=== PATIENT | male | born 1955 | race Caucasian/White ===

== ENCOUNTER 2016-11-30 23:46 | Inpatient (IN) | payer MEDICAID ==
[~2016-11-30] VITALS: Ht 177.8 cm; Wt 69.7 kg
[~2016-11-30 23:46] MED LIST: AMLO5TAB4 PO; FOLI-17 PO; LORA-446 PO; MULT-750 PO; OMEP-110 PO; OXYC5TAB3 PO; SENN1TAB7 PO; THIA100T6 PO
[2016-12-01] MEDS ORDERED: CLINDAMYCIN 150 MG/ML, 6ML IM ONE (02:00)
[2016-12-01] MEDS ORDERED: HYDROcodone/APAP 5/325 TABLET PO ONE (02:30)
[2016-12-01] MEDS ORDERED: SODIUM CHLORIDE 0.9% 1,000ML IVBOLUS ONE (03:00)
[2016-12-01] MEDS ORDERED: VANCOMYCIN PER PHARMACY IV ONE (03:00)
[2016-12-01] MEDS ORDERED: PIPERACILLIN/TAZO/PMX 3.375GM 50 ML IVPB ONE (03:00)
[2016-12-01] MEDS ORDERED: CLINDAMYCIN PMX 600MG/50ML 50 ML IV ONE (03:00)
[2016-12-01] MEDS ORDERED: VANCOMYCIN 1,500 MG in SODIUM CHLORIDE 0.9% 250 ML IV ONE (03:00)
[2016-12-01 03:19] LABS: BLOOD UREA NITROGEN 15 mg/dL (7-18)
[2016-12-01 03:22] LABS: ASPARTATE AMINO TRANSFERASE 41 U/L (15-37)
[2016-12-01] MEDS ORDERED: ONDANSETRON 2MG/ML, 2ML IVP PRN (04:00)
[2016-12-01] MEDS ORDERED: VANCOMYCIN PER PHARMACY MC PRN (04:00)
[2016-12-01] MEDS ORDERED: HYDROmorphone 2 MG/ML, 1ML IV PRN (04:00)
[2016-12-01] MEDS ORDERED: PROMETHAZINE 25 MG/ML, 1ML IM PRN (04:00)
[2016-12-01 04:59] VITALS: BP 144/85
[2016-12-01] MEDS ORDERED: PHARMACOKINETIC MONITORING MC PRN (06:00)
[2016-12-01] MEDS ORDERED: PHARMACOKINETIC CONSULTATION MC ONE (06:00)
[2016-12-01 07:55] VITALS: BP 153/89
[2016-12-01] MEDS: NS + 20MEQ KCL 1,000 ML IV SCH ×2 (08:02→16:34)
[2016-12-01] MEDS: PIPERACILLIN/TAZO/PMX 3.375GM 50 ML IV SCH ×3 (08:03→20:55)
[2016-12-01] MEDS: CLINDAMYCIN PMX 600MG/50ML 50 ML IV SCH ×3 (08:03→19:53)
[2016-12-01 13:50] VITALS: BP 143/83
[2016-12-01] MEDS: VANCOMYCIN 1,300 MG in SODIUM CHLORIDE 0.9% 250 ML IV SCH (16:34)
[2016-12-01 20:00] VITALS: BP 119/69
[2016-12-02] MEDS: CLINDAMYCIN PMX 600MG/50ML 50 ML IV SCH ×4 (01:34→21:50)
[2016-12-02 02:00] VITALS: BP 152/89
[2016-12-02] MEDS: PIPERACILLIN/TAZO/PMX 3.375GM 50 ML IV SCH ×4 (02:49→23:15)
[2016-12-02] MEDS: VANCOMYCIN 1,300 MG in SODIUM CHLORIDE 0.9% 250 ML IV SCH ×2 (03:57→17:23)
[2016-12-02 06:19] LABS: BLOOD UREA NITROGEN 9 mg/dL (7-18)
[2016-12-02 06:39] VITALS: BP 158/92
[2016-12-02] MEDS ORDERED: GADOBUTROL 7.5 MMOL/7.5 ML PFS ONE (10:04)
[2016-12-02 13:24] VITALS: BP 137/84
[2016-12-02] MEDS: POTASSIUM CHLORIDE 20 MEQ TAB.ER.PRT PO SCH (16:57)
[2016-12-02 20:07] VITALS: BP 145/83
[2016-12-03 02:28] VITALS: BP 156/88
[2016-12-03] MEDS: CLINDAMYCIN PMX 600MG/50ML 50 ML IV SCH ×4 (04:03→19:36)
[2016-12-03] MEDS: VANCOMYCIN 1,300 MG in SODIUM CHLORIDE 0.9% 250 ML IV SCH ×2 (05:15→16:40)
[2016-12-03 05:34] LABS: BLOOD UREA NITROGEN 7 mg/dL (7-18)
[2016-12-03 07:51] VITALS: BP 168/95
[2016-12-03] MEDS: PIPERACILLIN/TAZO/PMX 3.375GM 50 ML IV SCH ×4 (07:58→23:03)
[2016-12-03] MEDS: POTASSIUM CHLORIDE 20 MEQ TAB.ER.PRT PO SCH (08:40)
[2016-12-03] MEDS ORDERED: LABETALOL 5MG/ML, 20ML IVPush PRN (12:30)
[2016-12-03 13:32] VITALS: BP 158/98
[2016-12-03] MEDS ORDERED: POTASSIUM CHLORIDE 20 MEQ TAB.ER.PRT PO ONE (18:00)
[2016-12-03 19:37] VITALS: BP 158/80
[2016-12-04] MEDS: CLINDAMYCIN PMX 600MG/50ML 50 ML IV SCH ×4 (01:17→21:01)
[2016-12-04 03:50] VITALS: BP 166/89
[2016-12-04] MEDS: PIPERACILLIN/TAZO/PMX 3.375GM 50 ML IV SCH ×3 (05:08→20:23)
[2016-12-04 05:33] LABS: BLOOD UREA NITROGEN 9 mg/dL (7-18)
[2016-12-04 05:37] LABS: ASPARTATE AMINO TRANSFERASE 82 U/L (15-37)
[2016-12-04] MEDS: VANCOMYCIN 1,500 MG in SODIUM CHLORIDE 0.9% 250 ML IV SCH ×2 (05:38→22:10)
[2016-12-04 07:22] LABS: DIFF TOTAL CELLS COUNTED 100 CELL DIFF
[2016-12-04 07:24] LABS: VERIFY COUNTS? YES
[2016-12-04 07:25] LABS: ANISOCYTOSIS 1+
[2016-12-04 07:39] VITALS: BP 162/99
[2016-12-04] MEDS ORDERED: POTASSIUM CHLORIDE 40 MEQ in SODIUM CHLORIDE 0.9% 500 ML IV ONE (08:00)
[2016-12-04 13:33] VITALS: BP 169/90
[2016-12-04] MEDS ORDERED: FENTANYL PF 250 MCG/5ML ONE (14:38)
[2016-12-04] MEDS ORDERED: MIDAZOLAM 1 MG/ML, 2ML ONE (14:38)
[2016-12-04] MEDS ORDERED: PHENYLEPHRINE 10 MG/ML ONE (15:46)
[2016-12-04] MEDS ORDERED: PROPOFOL 10 MG/ML, 20ML ONE (15:46)
[2016-12-04] MEDS ORDERED: CEFAZOLIN 1,000 MG ONE (15:46)
[2016-12-04] MEDS ORDERED: ESMOLOL 100 MG/10 ML ONE (15:46)
[2016-12-04] MEDS ORDERED: ROCURONIUM 10 MG/ML ONE (15:46)
[2016-12-04] MEDS ORDERED: DEXAMETHASONE 4 MG/ML, 1ML ONE (15:46)
[2016-12-04] MEDS ORDERED: ONDANSETRON 2MG/ML, 2ML ONE (15:46)
[2016-12-04] MEDS ORDERED: SUCCINYLCHOLINE 20 MG/ML, 10ML ONE (15:46)
[2016-12-04] MEDS ORDERED: MEPERIDINE/PF 25MG/0.5ML IVPush PRN (17:00)
[2016-12-04] MEDS ORDERED: LABETALOL 5MG/ML, 20ML IV PRN (17:00)
[2016-12-04] MEDS ORDERED: METOCLOPRAMIDE 5 MG/ML, 2ML IV PRN (17:00)
[2016-12-04] MEDS ORDERED: ONDANSETRON 2MG/ML, 2ML IVPush PRN (17:00)
[2016-12-04] MEDS ORDERED: HYDROmorphone 1 MG/ML, 1ML IV PRN (17:00)
[2016-12-04] MEDS ORDERED: OXYcodone 5 MG/5 ML ORAL.SOL UDC PO PRN (17:00)
[2016-12-04] MEDS ORDERED: hydrALAzine 20 MG/ML, 1ML IV PRN (17:00)
[2016-12-04] MEDS ORDERED: FENTANYL PF 100 MCG/2ML IV PRN (17:00)
[2016-12-04] MEDS ORDERED: PROMETHAZINE 25 MG/ML, 1ML IV PRN (17:00)
[2016-12-04] MEDS ORDERED: ACETAMINOPHEN 325 MG TABLET PO PRN (17:00)
[2016-12-04] MEDS ORDERED: MIDAZOLAM 1 MG/ML, 2ML IV PRN (17:00)
[2016-12-04] MEDS ORDERED: BUPIVACAINE/PF-EPI 0.5% 1:200K ONE (17:16)
[2016-12-04] MEDS ORDERED: OXYcodone 5 MG/5 ML ORAL.SOL UDC ONE (17:48)
[2016-12-04 19:04] LABS: BLOOD UREA NITROGEN 6 mg/dL (7-18)
[2016-12-04 19:08] LABS: IS PT STATUS REG ER OR PRE ER? NO
[2016-12-04 20:00] VITALS: BP 158/93
[2016-12-05] LABS: IS PT STATUS REG ER OR PRE ER? NO
[2016-12-05 01:33] VITALS: BP 119/81
[2016-12-05] MEDS: PIPERACILLIN/TAZO/PMX 3.375GM 50 ML IV SCH ×4 (02:32→21:50)
[2016-12-05] MEDS: CLINDAMYCIN PMX 600MG/50ML 50 ML IV SCH ×4 (03:13→22:05)
[2016-12-05 06:12] LABS: BLOOD UREA NITROGEN 9 mg/dL (7-18)
[2016-12-05 06:33] LABS: DIFF TOTAL CELLS COUNTED 100 CELL DIFF
[2016-12-05 06:37] LABS: VERIFY COUNTS? YES
[2016-12-05 07:03] LABS: IS PT STATUS REG ER OR PRE ER? NO
[2016-12-05 07:28] VITALS: BP 137/82
[2016-12-05] MEDS ORDERED: POTASSIUM CHLORIDE 20 MEQ TAB.ER.PRT PO ONE (08:00)
[2016-12-05] MEDS: VANCOMYCIN 1,500 MG in SODIUM CHLORIDE 0.9% 250 ML IV SCH ×2 (11:26→23:55)
[2016-12-05 14:54] VITALS: BP 105/69
[2016-12-05 19:25] VITALS: BP 123/78
[2016-12-06 02:18] VITALS: BP 153/95
[2016-12-06] MEDS: OXYcodone/APAP 5/325MG TABLET PO PRN (02:22)
[2016-12-06] MEDS: CLINDAMYCIN PMX 600MG/50ML 50 ML IV SCH ×2 (04:15→09:17)
[2016-12-06] MEDS: PIPERACILLIN/TAZO/PMX 3.375GM 50 ML IV SCH ×4 (04:15→21:52)
[2016-12-06 06:37] LABS: BLOOD UREA NITROGEN 10 mg/dL (7-18)
[2016-12-06 07:43] VITALS: BP 150/92
[2016-12-06] MEDS: VANCOMYCIN 1,500 MG in SODIUM CHLORIDE 0.9% 250 ML IV SCH (11:58)
[2016-12-06 13:23] VITALS: BP 149/89
[2016-12-06] MEDS: VANCOMYCIN 1,300 MG in SODIUM CHLORIDE 0.9% 250 ML IV SCH (18:21)
[2016-12-06 21:49] VITALS: BP 158/92
[2016-12-07 01:51] VITALS: BP 154/101
[2016-12-07] MEDS: PIPERACILLIN/TAZO/PMX 3.375GM 50 ML IV SCH ×4 (04:01→22:01)
[2016-12-07] MEDS: VANCOMYCIN 1,300 MG in SODIUM CHLORIDE 0.9% 250 ML IV SCH ×2 (05:08→17:32)
[2016-12-07 07:45] VITALS: BP 154/94
[2016-12-07] MEDS: OXYcodone/APAP 5/325MG TABLET PO PRN ×2 (10:23→22:02)
[2016-12-07] MEDS: MICAFUNGIN 100 MG in SODIUM CHLORIDE 0.9% 100 ML IV SCH (12:45)
[2016-12-07 14:02] VITALS: BP 130/84
[2016-12-07 21:30] VITALS: BP 159/92
[2016-12-08 02:00] VITALS: BP 162/98
[2016-12-08] MEDS: PIPERACILLIN/TAZO/PMX 3.375GM 50 ML IV SCH ×4 (04:11→22:36)
[2016-12-08] MEDS: VANCOMYCIN 1,300 MG in SODIUM CHLORIDE 0.9% 250 ML IV SCH ×2 (05:07→18:23)
[2016-12-08 06:43] VITALS: BP 146/92
[2016-12-08] MEDS: HYDROCHLOROTHIAZIDE 12.5 MG CAPSULE PO SCH (09:00)
[2016-12-08] MEDS: MICAFUNGIN 100 MG in SODIUM CHLORIDE 0.9% 100 ML IV SCH (09:43)
[2016-12-08 12:45] VITALS: BP 159/94
[2016-12-08] MEDS: OXYcodone/APAP 5/325MG TABLET PO PRN ×3 (14:14→20:34)
[2016-12-08 20:00] VITALS: BP 159/99
[2016-12-09 02:10] VITALS: BP 142/89
[2016-12-09] MEDS: PIPERACILLIN/TAZO/PMX 3.375GM 50 ML IV SCH ×2 (04:11→10:00)
[2016-12-09] MEDS: OXYcodone/APAP 5/325MG TABLET PO PRN ×2 (04:12→09:04)
[2016-12-09] MEDS ORDERED: VANCOMYCIN 1,150 MG in SODIUM CHLORIDE 0.9% 250 ML IV SCH (06:00)
[2016-12-09 06:29] LABS: BLOOD UREA NITROGEN 16 mg/dL (7-18)
[2016-12-09 08:39] VITALS: BP 130/84
[2016-12-09] MEDS: MULTIVITAMINS WITH IRON TABLET PO SCH (09:04)
[2016-12-09] MEDS: HYDROCHLOROTHIAZIDE 12.5 MG CAPSULE PO SCH (09:04)
[2016-12-09] MEDS: POTASSIUM CHLORIDE 20 MEQ TAB.ER.PRT PO SCH (09:04)
[2016-12-09] MEDS: MICAFUNGIN 100 MG in SODIUM CHLORIDE 0.9% 100 ML IV SCH (10:51)
[2016-12-09] MEDS: AMPICILLIN/SULBACTAM 3 GM in SODIUM CHLORIDE 0.9% 100 ML IV SCH ×2 (10:51→17:48)
[2016-12-09 16:59] VITALS: BP 150/95
[2016-12-09 20:35] VITALS: BP 153/93
[2016-12-10] MEDS: AMPICILLIN/SULBACTAM 3 GM in SODIUM CHLORIDE 0.9% 100 ML IV SCH ×3 (01:58→18:23)
[2016-12-10 02:00] VITALS: BP 139/91
[2016-12-10 07:36] VITALS: BP 154/100
[2016-12-10] MEDS: MULTIVITAMINS WITH IRON TABLET PO SCH (10:27)
[2016-12-10] MEDS: HYDROCHLOROTHIAZIDE 12.5 MG CAPSULE PO SCH (10:28)
[2016-12-10] MEDS: POTASSIUM CHLORIDE 20 MEQ TAB.ER.PRT PO SCH ×2 (10:28→11:58)
[2016-12-10] MEDS: MICAFUNGIN 100 MG in SODIUM CHLORIDE 0.9% 100 ML IV SCH (10:30)
[2016-12-10] MEDS: OXYcodone/APAP 5/325MG TABLET PO PRN ×2 (10:40→14:46)
[2016-12-10] MEDS: KETOCONAZOLE CRM 2%, 15GM TP SCH (11:58)
[2016-12-10 13:57] VITALS: BP 141/81
[2016-12-10 19:00] VITALS: BP 124/85
[2016-12-11 01:39] VITALS: BP 158/98
[2016-12-11] MEDS: AMPICILLIN/SULBACTAM 3 GM in SODIUM CHLORIDE 0.9% 100 ML IV SCH ×3 (02:53→19:06)
[2016-12-11 03:03] VITALS: BP 150/89
[2016-12-11] MEDS: OXYcodone/APAP 5/325MG TABLET PO PRN ×4 (06:13→21:29)
[2016-12-11 06:46] VITALS: BP 148/94
[2016-12-11] MEDS: MULTIVITAMINS WITH IRON TABLET PO SCH (09:22)
[2016-12-11] MEDS: HYDROCHLOROTHIAZIDE 12.5 MG CAPSULE PO SCH (09:22)
[2016-12-11] MEDS: POTASSIUM CHLORIDE 20 MEQ TAB.ER.PRT PO SCH (09:22)
[2016-12-11] MEDS: KETOCONAZOLE CRM 2%, 15GM TP SCH (09:22)
[2016-12-11] MEDS: MICAFUNGIN 100 MG in SODIUM CHLORIDE 0.9% 100 ML IV SCH (10:50)
[2016-12-11 13:55] VITALS: BP 143/91
[2016-12-11 19:39] VITALS: BP 144/76
[2016-12-12 02:37] VITALS: BP 154/94
[2016-12-12] MEDS: AMPICILLIN/SULBACTAM 3 GM in SODIUM CHLORIDE 0.9% 100 ML IV SCH ×3 (03:00→17:54)
[2016-12-12] MEDS: OXYcodone/APAP 5/325MG TABLET PO PRN (06:07)
[2016-12-12 06:11] LABS: BLOOD UREA NITROGEN 18 mg/dL (7-18)
[2016-12-12 08:22] VITALS: BP 149/90
[2016-12-12] MEDS: HYDROCHLOROTHIAZIDE 12.5 MG CAPSULE PO SCH (09:20)
[2016-12-12] MEDS: POTASSIUM CHLORIDE 20 MEQ TAB.ER.PRT PO SCH (09:20)
[2016-12-12] MEDS: MULTIVITAMINS WITH IRON TABLET PO SCH (09:20)
[2016-12-12] MEDS: KETOCONAZOLE CRM 2%, 15GM TP SCH (09:20)
[2016-12-12] MEDS: MICAFUNGIN 100 MG in SODIUM CHLORIDE 0.9% 100 ML IV SCH (12:19)
[2016-12-12 13:07] VITALS: BP 120/73
[2016-12-12 19:08] VITALS: BP 154/99
[2016-12-13] MEDS: AMPICILLIN/SULBACTAM 3 GM in SODIUM CHLORIDE 0.9% 100 ML IV SCH ×3 (02:22→18:35)
[2016-12-13 05:05] VITALS: BP 157/93
[2016-12-13 05:36] LABS: ASPARTATE AMINO TRANSFERASE 61 U/L (15-37); BLOOD UREA NITROGEN 13 mg/dL (7-18); C-REACTIVE PROTEIN, QUANT 0.95 mg/dL (0.02-0.49)
[2016-12-13 07:35] VITALS: BP 149/92
[2016-12-13] MEDS: POTASSIUM CHLORIDE 20 MEQ TAB.ER.PRT PO SCH (08:55)
[2016-12-13] MEDS: MULTIVITAMINS WITH IRON TABLET PO SCH (08:55)
[2016-12-13] MEDS: KETOCONAZOLE CRM 2%, 15GM TP SCH (08:56)
[2016-12-13] MEDS: HYDROCHLOROTHIAZIDE 12.5 MG CAPSULE PO SCH (08:56)
[2016-12-13] MEDS: MICAFUNGIN 100 MG in SODIUM CHLORIDE 0.9% 100 ML IV SCH (10:45)
[2016-12-13 13:50] VITALS: BP 120/80
[2016-12-13 19:59] VITALS: BP 149/84
[2016-12-14 02:11] VITALS: BP 146/96
[2016-12-14] MEDS: AMPICILLIN/SULBACTAM 3 GM in SODIUM CHLORIDE 0.9% 100 ML IV SCH ×3 (02:35→17:59)
[2016-12-14 06:44] VITALS: BP 151/93
[2016-12-14] MEDS: KETOCONAZOLE CRM 2%, 15GM TP SCH (10:38)
[2016-12-14] MEDS: POTASSIUM CHLORIDE 20 MEQ TAB.ER.PRT PO SCH (10:38)
[2016-12-14] MEDS: HYDROCHLOROTHIAZIDE 12.5 MG CAPSULE PO SCH (10:38)
[2016-12-14] MEDS: MULTIVITAMINS WITH IRON TABLET PO SCH (10:38)
[2016-12-14] MEDS: MICAFUNGIN 100 MG in SODIUM CHLORIDE 0.9% 100 ML IV SCH (11:19)
[2016-12-14 12:35] VITALS: BP 136/87
[2016-12-14] MEDS ORDERED: OMNIPAQUE 350 MG/ML, 150 ML BOTTLE ONE (21:59)
[2016-12-14] MEDS ORDERED: MIDAZOLAM 1 MG/ML, 5ML ONE (23:45)
[2016-12-14] MEDS ORDERED: FENTANYL 100 MCG PATCH ONE (23:46)
[2016-12-14] MEDS ORDERED: DIPHENHYDRAMINE 50 MG/ML, 1ML ONE (23:46)
[2016-12-14] MEDS ORDERED: FENTANYL PF 100 MCG/2ML ONE (23:47)
[2016-12-15] MEDS: AMPICILLIN/SULBACTAM 3 GM in SODIUM CHLORIDE 0.9% 100 ML IV SCH ×3 (02:30→18:09)
[2016-12-15 03:08] VITALS: BP 157/92
[2016-12-15 08:01] VITALS: BP 151/87
[2016-12-15 13:20] VITALS: BP 121/53
[2016-12-15] MEDS: MULTIVITAMINS WITH IRON TABLET PO SCH (13:26)
[2016-12-15] MEDS: POTASSIUM CHLORIDE 20 MEQ TAB.ER.PRT PO SCH (13:27)
[2016-12-15] MEDS: KETOCONAZOLE CRM 2%, 15GM TP SCH (13:27)
[2016-12-15] MEDS: MICAFUNGIN 100 MG in SODIUM CHLORIDE 0.9% 100 ML IV SCH (13:27)
[2016-12-15] MEDS: HYDROCHLOROTHIAZIDE 12.5 MG CAPSULE PO SCH (13:27)
[2016-12-15 19:45] VITALS: BP 127/76
[2016-12-16 01:33] VITALS: BP 129/71
[2016-12-16] MEDS: AMPICILLIN/SULBACTAM 3 GM in SODIUM CHLORIDE 0.9% 100 ML IV SCH ×3 (02:53→20:14)
[2016-12-16 06:50] VITALS: BP 144/92
[2016-12-16] MEDS: POTASSIUM CHLORIDE 20 MEQ TAB.ER.PRT PO SCH (07:53)
[2016-12-16] MEDS: KETOCONAZOLE CRM 2%, 15GM TP SCH (07:53)
[2016-12-16] MEDS: HYDROCHLOROTHIAZIDE 12.5 MG CAPSULE PO SCH (07:53)
[2016-12-16] MEDS: MULTIVITAMINS WITH IRON TABLET PO SCH (07:53)
[2016-12-16] MEDS: MICAFUNGIN 100 MG in SODIUM CHLORIDE 0.9% 100 ML IV SCH (11:30)
[2016-12-16 14:06] VITALS: BP 132/88
[2016-12-16 19:28] VITALS: BP 143/73
[2016-12-17 02:20] VITALS: BP 142/83
[2016-12-17] MEDS: AMPICILLIN/SULBACTAM 3 GM in SODIUM CHLORIDE 0.9% 100 ML IV SCH ×3 (03:56→20:29)
[2016-12-17 07:01] VITALS: BP 156/89
[2016-12-17] MEDS ORDERED: FENTANYL PF 100 MCG/2ML ONE (09:41)
[2016-12-17] MEDS ORDERED: MIDAZOLAM 1 MG/ML, 5ML ONE (09:41)
[2016-12-17] MEDS ORDERED: SIMETHICONE DROPS 40 MG/0.6 ML BOTTLE ONE (09:59)
[2016-12-17] MEDS: MICAFUNGIN 100 MG in SODIUM CHLORIDE 0.9% 100 ML IV SCH (11:57)
[2016-12-17] MEDS: KETOCONAZOLE CRM 2%, 15GM TP SCH (11:58)
[2016-12-17] MEDS: MULTIVITAMINS WITH IRON TABLET PO SCH (11:58)
[2016-12-17] MEDS: PANTOPROZOLE 40MG TABLET PO SCH (11:58)
[2016-12-17] MEDS: HYDROCHLOROTHIAZIDE 12.5 MG CAPSULE PO SCH (11:58)
[2016-12-17] MEDS: POTASSIUM CHLORIDE 20 MEQ TAB.ER.PRT PO SCH (11:58)
[2016-12-17 12:50] VITALS: BP 137/82
[2016-12-17 19:55] VITALS: BP 137/84
[2016-12-18 03:05] VITALS: BP 156/86
[2016-12-18] MEDS: AMPICILLIN/SULBACTAM 3 GM in SODIUM CHLORIDE 0.9% 100 ML IV SCH ×3 (04:28→21:52)
[2016-12-18 06:45] VITALS: BP 131/82
[2016-12-18] MEDS: HYDROCHLOROTHIAZIDE 12.5 MG CAPSULE PO SCH (08:38)
[2016-12-18] MEDS: POTASSIUM CHLORIDE 20 MEQ TAB.ER.PRT PO SCH (08:38)
[2016-12-18] MEDS: PANTOPROZOLE 40MG TABLET PO SCH (08:38)
[2016-12-18] MEDS: MULTIVITAMINS WITH IRON TABLET PO SCH (08:38)
[2016-12-18] MEDS: MICAFUNGIN 100 MG in SODIUM CHLORIDE 0.9% 100 ML IV SCH (11:34)
[2016-12-18] MEDS: KETOCONAZOLE CRM 2%, 15GM TP SCH (12:55)
[2016-12-18 14:00] VITALS: BP 136/84
[2016-12-18 19:30] VITALS: BP 135/78
[2016-12-19 01:50] VITALS: BP 130/78
[2016-12-19] MEDS: AMPICILLIN/SULBACTAM 3 GM in SODIUM CHLORIDE 0.9% 100 ML IV SCH ×3 (04:48→21:40)
[2016-12-19 07:37] VITALS: BP 130/87
[2016-12-19] MEDS: POTASSIUM CHLORIDE 20 MEQ TAB.ER.PRT PO SCH (08:59)
[2016-12-19] MEDS: MULTIVITAMINS WITH IRON TABLET PO SCH (08:59)
[2016-12-19] MEDS: HYDROCHLOROTHIAZIDE 12.5 MG CAPSULE PO SCH (08:59)
[2016-12-19] MEDS: PANTOPROZOLE 40MG TABLET PO SCH (08:59)
[2016-12-19] MEDS: KETOCONAZOLE CRM 2%, 15GM TP SCH (09:00)
[2016-12-19] MEDS: MICAFUNGIN 100 MG in SODIUM CHLORIDE 0.9% 100 ML IV SCH (11:29)
[2016-12-19 13:45] VITALS: BP 137/83
[2016-12-19 20:07] VITALS: BP 141/86
[2016-12-20 02:18] VITALS: BP 132/80
[2016-12-20] MEDS: AMPICILLIN/SULBACTAM 3 GM in SODIUM CHLORIDE 0.9% 100 ML IV SCH ×3 (06:21→22:06)
[2016-12-20 06:39] VITALS: BP 132/77
[2016-12-20] MEDS: POTASSIUM CHLORIDE 20 MEQ TAB.ER.PRT PO SCH (10:34)
[2016-12-20] MEDS: MULTIVITAMINS WITH IRON TABLET PO SCH (10:34)
[2016-12-20] MEDS: PANTOPROZOLE 40MG TABLET PO SCH (10:34)
[2016-12-20] MEDS: HYDROCHLOROTHIAZIDE 12.5 MG CAPSULE PO SCH (10:34)
[2016-12-20] MEDS: KETOCONAZOLE CRM 2%, 15GM TP SCH (10:59)
[2016-12-20] MEDS: MICAFUNGIN 100 MG in SODIUM CHLORIDE 0.9% 100 ML IV SCH (10:59)
[2016-12-20 12:57] VITALS: BP 133/81
[2016-12-20 19:47] VITALS: BP 123/76
[2016-12-21 01:49] VITALS: BP 140/86
[2016-12-21 04:43] LABS: BLOOD UREA NITROGEN 12 mg/dL (7-18)
[2016-12-21 04:48] LABS: ASPARTATE AMINO TRANSFERASE 63 U/L (15-37)
[2016-12-21] MEDS: AMPICILLIN/SULBACTAM 3 GM in SODIUM CHLORIDE 0.9% 100 ML IV SCH ×2 (06:16→17:05)
[2016-12-21 07:44] VITALS: BP 142/86
[2016-12-21] MEDS: MICAFUNGIN 100 MG in SODIUM CHLORIDE 0.9% 100 ML IV SCH (08:56)
[2016-12-21] MEDS: PANTOPROZOLE 40MG TABLET PO SCH (08:56)
[2016-12-21] MEDS: HYDROCHLOROTHIAZIDE 12.5 MG CAPSULE PO SCH (08:56)
[2016-12-21] MEDS: KETOCONAZOLE CRM 2%, 15GM TP SCH (08:56)
[2016-12-21] MEDS: MULTIVITAMINS WITH IRON TABLET PO SCH (08:56)
[2016-12-21] MEDS: POTASSIUM CHLORIDE 20 MEQ TAB.ER.PRT PO SCH (08:56)
[2016-12-21] MEDS ORDERED: POTASSIUM CHLORIDE 20 MEQ TAB.ER.PRT PO ONE (13:30)
[2016-12-21] MEDS ORDERED: MAGNESIUM SULFATE PMX 2GM/50ML 50 ML IV ONE (13:30)
[2016-12-21 14:18] VITALS: BP 147/83
[2016-12-21 16:11] LABS: HEPATITIS C VIRUS ANTIBODY Nonreactive (Nonreactive)
[2016-12-21 20:21] VITALS: BP 142/90
[2016-12-22 01:59] VITALS: BP 135/75
[2016-12-22] MEDS: AMPICILLIN/SULBACTAM 3 GM in SODIUM CHLORIDE 0.9% 100 ML IV SCH ×3 (02:54→21:52)
[2016-12-22 04:06] LABS: ASPARTATE AMINO TRANSFERASE 54 U/L (15-37); BLOOD UREA NITROGEN 14 mg/dL (7-18)
[2016-12-22 08:13] VITALS: BP 137/75
[2016-12-22] MEDS: MICAFUNGIN 100 MG in SODIUM CHLORIDE 0.9% 100 ML IV SCH (09:21)
[2016-12-22] MEDS: MULTIVITAMINS WITH IRON TABLET PO SCH (09:21)
[2016-12-22] MEDS: POTASSIUM CHLORIDE 20 MEQ TAB.ER.PRT PO SCH (09:21)
[2016-12-22] MEDS: PANTOPROZOLE 40MG TABLET PO SCH (09:21)
[2016-12-22] MEDS: KETOCONAZOLE CRM 2%, 15GM TP SCH (09:21)
[2016-12-22] MEDS: HYDROCHLOROTHIAZIDE 12.5 MG CAPSULE PO SCH (09:21)
[2016-12-22 13:50] VITALS: BP 133/72
[2016-12-22 20:15] VITALS: BP 128/87
[2016-12-23 02:07] VITALS: BP 136/75
[2016-12-23] MEDS: AMPICILLIN/SULBACTAM 3 GM in SODIUM CHLORIDE 0.9% 100 ML IV SCH ×3 (05:42→21:04)
[2016-12-23 07:15] VITALS: BP 129/77
[2016-12-23] MEDS: PANTOPROZOLE 40MG TABLET PO SCH (10:13)
[2016-12-23] MEDS: MULTIVITAMINS WITH IRON TABLET PO SCH (10:13)
[2016-12-23] MEDS: POTASSIUM CHLORIDE 20 MEQ TAB.ER.PRT PO SCH (10:14)
[2016-12-23] MEDS: KETOCONAZOLE CRM 2%, 15GM TP SCH (10:15)
[2016-12-23] MEDS: HYDROCHLOROTHIAZIDE 12.5 MG CAPSULE PO SCH (10:15)
[2016-12-23] MEDS: MICAFUNGIN 100 MG in SODIUM CHLORIDE 0.9% 100 ML IV SCH (10:28)
[2016-12-23 13:03] VITALS: BP 122/81
[2016-12-23 19:22] VITALS: BP 151/87
[2016-12-24 02:01] VITALS: BP 137/86
[2016-12-24] MEDS: AMPICILLIN/SULBACTAM 3 GM in SODIUM CHLORIDE 0.9% 100 ML IV SCH ×3 (05:26→21:24)
[2016-12-24 06:56] VITALS: BP 134/83
[2016-12-24] MEDS: KETOCONAZOLE CRM 2%, 15GM TP SCH (09:00)
[2016-12-24] MEDS: MICAFUNGIN 100 MG in SODIUM CHLORIDE 0.9% 100 ML IV SCH (10:12)
[2016-12-24] MEDS: MULTIVITAMINS WITH IRON TABLET PO SCH (10:12)
[2016-12-24] MEDS: PANTOPROZOLE 40MG TABLET PO SCH (10:12)
[2016-12-24] MEDS: POTASSIUM CHLORIDE 20 MEQ TAB.ER.PRT PO SCH (10:12)
[2016-12-24] MEDS: HYDROCHLOROTHIAZIDE 12.5 MG CAPSULE PO SCH (10:12)
[2016-12-24 14:15] VITALS: BP 130/85
[2016-12-24 20:00] VITALS: BP 136/80
[2016-12-25 03:11] VITALS: BP 142/89
[2016-12-25] MEDS: AMPICILLIN/SULBACTAM 3 GM in SODIUM CHLORIDE 0.9% 100 ML IV SCH ×3 (06:07→21:41)
[2016-12-25 07:08] VITALS: BP 139/87
[2016-12-25] MEDS: HYDROCHLOROTHIAZIDE 12.5 MG CAPSULE PO SCH (09:45)
[2016-12-25] MEDS: KETOCONAZOLE CRM 2%, 15GM TP SCH (09:45)
[2016-12-25] MEDS: MICAFUNGIN 100 MG in SODIUM CHLORIDE 0.9% 100 ML IV SCH (09:45)
[2016-12-25] MEDS: PANTOPROZOLE 40MG TABLET PO SCH (09:45)
[2016-12-25] MEDS: MULTIVITAMINS WITH IRON TABLET PO SCH (09:45)
[2016-12-25] MEDS: POTASSIUM CHLORIDE 20 MEQ TAB.ER.PRT PO SCH (09:45)
[2016-12-25 14:03] VITALS: BP 145/85
[2016-12-25 20:00] VITALS: BP 159/78
[2016-12-25 22:50] VITALS: BP 159/78
[2016-12-26 00:02] VITALS: BP 133/92
[2016-12-26] MEDS: AMPICILLIN/SULBACTAM 3 GM in SODIUM CHLORIDE 0.9% 100 ML IV SCH ×3 (05:42→21:35)
[2016-12-26 07:27] VITALS: BP 123/78
[2016-12-26] MEDS: MULTIVITAMINS WITH IRON TABLET PO SCH (08:02)
[2016-12-26] MEDS: POTASSIUM CHLORIDE 20 MEQ TAB.ER.PRT PO SCH (08:03)
[2016-12-26] MEDS: KETOCONAZOLE CRM 2%, 15GM TP SCH (08:03)
[2016-12-26] MEDS: HYDROCHLOROTHIAZIDE 12.5 MG CAPSULE PO SCH (08:03)
[2016-12-26] MEDS: PANTOPROZOLE 40MG TABLET PO SCH (08:03)
[2016-12-26] MEDS: MICAFUNGIN 100 MG in SODIUM CHLORIDE 0.9% 100 ML IV SCH (11:44)
[2016-12-26 13:09] VITALS: BP 107/64
[2016-12-26 20:17] VITALS: BP 104/61
[2016-12-27] MEDS: AMPICILLIN/SULBACTAM 3 GM in SODIUM CHLORIDE 0.9% 100 ML IV SCH ×3 (05:07→21:51)
[2016-12-27 05:10] VITALS: BP 132/92
[2016-12-27 06:46] LABS: ASPARTATE AMINO TRANSFERASE 56 U/L (15-37); BLOOD UREA NITROGEN 14 mg/dL (7-18); C-REACTIVE PROTEIN, QUANT 0.14 mg/dL (0.02-0.49)
[2016-12-27 07:29] VITALS: BP 116/82
[2016-12-27] MEDS: PANTOPROZOLE 40MG TABLET PO SCH (08:40)
[2016-12-27] MEDS: POTASSIUM CHLORIDE 20 MEQ TAB.ER.PRT PO SCH (08:40)
[2016-12-27] MEDS: HYDROCHLOROTHIAZIDE 12.5 MG CAPSULE PO SCH (08:40)
[2016-12-27] MEDS: KETOCONAZOLE CRM 2%, 15GM TP SCH (08:44)
[2016-12-27] MEDS: MULTIVITAMINS WITH IRON TABLET PO SCH (08:44)
[2016-12-27] MEDS: MICAFUNGIN 100 MG in SODIUM CHLORIDE 0.9% 100 ML IV SCH (10:27)
[2016-12-27 13:09] VITALS: BP 122/89
[2016-12-27 20:17] VITALS: BP 127/84
[2016-12-28 01:18] VITALS: BP 103/70
[2016-12-28] MEDS: AMPICILLIN/SULBACTAM 3 GM in SODIUM CHLORIDE 0.9% 100 ML IV SCH ×3 (05:06→21:55)
[2016-12-28 07:45] VITALS: BP 116/71
[2016-12-28] MEDS: PANTOPROZOLE 40MG TABLET PO SCH (09:50)
[2016-12-28] MEDS: POTASSIUM CHLORIDE 20 MEQ TAB.ER.PRT PO SCH (09:50)
[2016-12-28] MEDS: KETOCONAZOLE CRM 2%, 15GM TP SCH (09:51)
[2016-12-28] MEDS: HYDROCHLOROTHIAZIDE 12.5 MG CAPSULE PO SCH (09:51)
[2016-12-28] MEDS: MULTIVITAMINS WITH IRON TABLET PO SCH (09:51)
[2016-12-28] MEDS: MICAFUNGIN 100 MG in SODIUM CHLORIDE 0.9% 100 ML IV SCH (10:14)
[2016-12-28 14:10] VITALS: BP 134/84
[2016-12-28 19:10] VITALS: BP 127/70
[2016-12-29 01:44] VITALS: BP 118/72
[2016-12-29] MEDS: AMPICILLIN/SULBACTAM 3 GM in SODIUM CHLORIDE 0.9% 100 ML IV SCH ×3 (05:56→20:46)
[2016-12-29 08:28] VITALS: BP 117/76
[2016-12-29] MEDS: PANTOPROZOLE 40MG TABLET PO SCH (08:31)
[2016-12-29] MEDS: HYDROCHLOROTHIAZIDE 12.5 MG CAPSULE PO SCH (08:31)
[2016-12-29] MEDS: MULTIVITAMINS WITH IRON TABLET PO SCH (08:31)
[2016-12-29] MEDS: POTASSIUM CHLORIDE 20 MEQ TAB.ER.PRT PO SCH (08:31)
[2016-12-29] MEDS: KETOCONAZOLE CRM 2%, 15GM TP SCH (08:31)
[2016-12-29] MEDS: MICAFUNGIN 100 MG in SODIUM CHLORIDE 0.9% 100 ML IV SCH (10:13)
[2016-12-29] MEDS: ENOXAPARIN 40 MG/0.4 ML SQ SCH (14:07)
[2016-12-29 15:35] VITALS: BP 108/69
[2016-12-29 19:24] VITALS: BP 124/76
[2016-12-30 04:00] VITALS: BP 108/69
[2016-12-30] MEDS: AMPICILLIN/SULBACTAM 3 GM in SODIUM CHLORIDE 0.9% 100 ML IV SCH ×3 (04:56→22:04)
[2016-12-30 06:40] VITALS: BP 121/78
[2016-12-30] MEDS: KETOCONAZOLE CRM 2%, 15GM TP SCH (08:54)
[2016-12-30] MEDS: HYDROCHLOROTHIAZIDE 12.5 MG CAPSULE PO SCH (08:54)
[2016-12-30] MEDS: PANTOPROZOLE 40MG TABLET PO SCH (08:54)
[2016-12-30] MEDS: POTASSIUM CHLORIDE 20 MEQ TAB.ER.PRT PO SCH (08:54)
[2016-12-30] MEDS: MULTIVITAMINS WITH IRON TABLET PO SCH (08:54)
[2016-12-30] MEDS: MICAFUNGIN 100 MG in SODIUM CHLORIDE 0.9% 100 ML IV SCH (08:55)
[2016-12-30] MEDS: ENOXAPARIN 40 MG/0.4 ML SQ SCH (14:01)
[2016-12-30 14:14] VITALS: BP 116/64
[2016-12-30 19:52] VITALS: BP 124/68
[2016-12-31 00:14] VITALS: BP 102/66
[2016-12-31] MEDS: AMPICILLIN/SULBACTAM 3 GM in SODIUM CHLORIDE 0.9% 100 ML IV SCH ×3 (05:09→21:20)
[2016-12-31 06:52] VITALS: BP 108/66
[2016-12-31] MEDS: POTASSIUM CHLORIDE 20 MEQ TAB.ER.PRT PO SCH (09:57)
[2016-12-31] MEDS: KETOCONAZOLE CRM 2%, 15GM TP SCH (09:57)
[2016-12-31] MEDS: HYDROCHLOROTHIAZIDE 12.5 MG CAPSULE PO SCH (09:57)
[2016-12-31] MEDS: PANTOPROZOLE 40MG TABLET PO SCH (09:57)
[2016-12-31] MEDS: MULTIVITAMINS WITH IRON TABLET PO SCH (09:57)
[2016-12-31] MEDS: MICAFUNGIN 100 MG in SODIUM CHLORIDE 0.9% 100 ML IV SCH (09:57)
[2016-12-31 13:30] VITALS: BP 128/79
[2016-12-31] MEDS: ENOXAPARIN 40 MG/0.4 ML SQ SCH (13:52)
[2016-12-31 20:02] VITALS: BP 117/59
[2017-01-01 04:00] VITALS: BP 130/76
[2017-01-01] MEDS: AMPICILLIN/SULBACTAM 3 GM in SODIUM CHLORIDE 0.9% 100 ML IV SCH (05:37)
[2017-01-01 06:32] VITALS: BP 121/79
[2017-01-01] MEDS: PANTOPROZOLE 40MG TABLET PO SCH (09:49)
[2017-01-01] MEDS: HYDROCHLOROTHIAZIDE 12.5 MG CAPSULE PO SCH (09:49)
[2017-01-01] MEDS: MULTIVITAMINS WITH IRON TABLET PO SCH (09:49)
[2017-01-01] MEDS: KETOCONAZOLE CRM 2%, 15GM TP SCH (09:49)
[2017-01-01] MEDS: POTASSIUM CHLORIDE 20 MEQ TAB.ER.PRT PO SCH (09:49)
[2017-01-01] MEDS: MICAFUNGIN 100 MG in SODIUM CHLORIDE 0.9% 100 ML IV SCH (11:04)
[2017-01-01 12:41] VITALS: BP 116/69
[2017-01-01] MEDS: ERTAPENEM 1 GM in SODIUM CHLORIDE 0.9% 50 ML IV SCH (12:52)
[2017-01-01] MEDS: VANCOMYCIN 1,400 MG in SODIUM CHLORIDE 0.9% 250 ML IV SCH (14:36)
[2017-01-01] MEDS: ENOXAPARIN 40 MG/0.4 ML SQ SCH (14:36)
[2017-01-01 19:06] VITALS: BP 114/65
[2017-01-01] MEDS: BETAMETHASONE/CLOTRIMAZOLE CRM 1%-0.05%, 15GM TP SCH (20:40)
[2017-01-02 02:42] VITALS: BP 115/63
[2017-01-02 07:46] VITALS: BP 107/71
[2017-01-02] MEDS: PANTOPROZOLE 40MG TABLET PO SCH (08:35)
[2017-01-02] MEDS: MULTIVITAMINS WITH IRON TABLET PO SCH (08:35)
[2017-01-02] MEDS: POTASSIUM CHLORIDE 20 MEQ TAB.ER.PRT PO SCH (08:35)
[2017-01-02] MEDS: HYDROCHLOROTHIAZIDE 12.5 MG CAPSULE PO SCH (08:35)
[2017-01-02] MEDS: BETAMETHASONE/CLOTRIMAZOLE CRM 1%-0.05%, 15GM TP SCH ×2 (08:36→21:26)
[2017-01-02] MEDS: DIPHENHYDRAMINE 50 MG/ML, 1ML IVPush PRN (11:18)
[2017-01-02] MEDS: ERTAPENEM 1 GM in SODIUM CHLORIDE 0.9% 50 ML IV SCH ×2 (12:14→17:26)
[2017-01-02 13:45] VITALS: BP 120/69
[2017-01-02] MEDS: VANCOMYCIN 1,400 MG in SODIUM CHLORIDE 0.9% 250 ML IV SCH (14:26)
[2017-01-02] MEDS: ENOXAPARIN 40 MG/0.4 ML SQ SCH (14:26)
[2017-01-02 20:57] VITALS: BP 127/74
[2017-01-03 01:52] VITALS: BP 121/70
[2017-01-03 06:17] LABS: ASPARTATE AMINO TRANSFERASE 22 U/L (15-37); BLOOD UREA NITROGEN 11 mg/dL (7-18)
[2017-01-03] MEDS: PANTOPROZOLE 40MG TABLET PO SCH (08:02)
[2017-01-03] MEDS: HYDROCHLOROTHIAZIDE 12.5 MG CAPSULE PO SCH (08:02)
[2017-01-03] MEDS: POTASSIUM CHLORIDE 20 MEQ TAB.ER.PRT PO SCH (08:02)
[2017-01-03] MEDS: BETAMETHASONE/CLOTRIMAZOLE CRM 1%-0.05%, 15GM TP SCH ×2 (08:03→21:00)
[2017-01-03] MEDS: MULTIVITAMINS WITH IRON TABLET PO SCH (08:03)
[2017-01-03 08:11] VITALS: BP 104/73
[2017-01-03 14:01] VITALS: BP 115/76
[2017-01-03] MEDS: VANCOMYCIN 1,400 MG in SODIUM CHLORIDE 0.9% 250 ML IV SCH (14:30)
[2017-01-03] MEDS: ENOXAPARIN 40 MG/0.4 ML SQ SCH (14:30)
[2017-01-03] MEDS: ERTAPENEM 1 GM in SODIUM CHLORIDE 0.9% 50 ML IV SCH (17:15)
[2017-01-03 19:50] VITALS: BP 122/84
[2017-01-04 01:54] VITALS: BP 129/88
[2017-01-04 08:17] VITALS: BP 118/82
[2017-01-04] MEDS: POTASSIUM CHLORIDE 20 MEQ TAB.ER.PRT PO SCH (08:22)
[2017-01-04] MEDS: PANTOPROZOLE 40MG TABLET PO SCH (08:22)
[2017-01-04] MEDS: MULTIVITAMINS WITH IRON TABLET PO SCH (08:22)
[2017-01-04] MEDS: HYDROCHLOROTHIAZIDE 12.5 MG CAPSULE PO SCH (08:22)
[2017-01-04] MEDS: BETAMETHASONE/CLOTRIMAZOLE CRM 1%-0.05%, 15GM TP SCH ×2 (08:23→20:40)
[2017-01-04] MEDS: DIPHENHYDRAMINE 50 MG/ML, 1ML IVPush PRN (11:07)
[2017-01-04 13:55] VITALS: BP_SYST 115; BP_DIAS 71; BP_DIAS 95
[2017-01-04] MEDS: ENOXAPARIN 40 MG/0.4 ML SQ SCH (15:22)
[2017-01-04] MEDS: VANCOMYCIN 1,400 MG in SODIUM CHLORIDE 0.9% 250 ML IV SCH (15:22)
[2017-01-04] MEDS: ERTAPENEM 1 GM in SODIUM CHLORIDE 0.9% 50 ML IV SCH (18:14)
[2017-01-04 21:44] VITALS: BP 122/76
[2017-01-05 01:26] VITALS: BP 122/81
[2017-01-05] MEDS: HYDROCHLOROTHIAZIDE 12.5 MG CAPSULE PO SCH (07:19)
[2017-01-05] MEDS: PANTOPROZOLE 40MG TABLET PO SCH (07:19)
[2017-01-05] MEDS: MULTIVITAMINS WITH IRON TABLET PO SCH (07:19)
[2017-01-05] MEDS: POTASSIUM CHLORIDE 20 MEQ TAB.ER.PRT PO SCH (07:19)
[2017-01-05] MEDS: BETAMETHASONE/CLOTRIMAZOLE CRM 1%-0.05%, 15GM TP SCH ×2 (07:20→21:10)
[2017-01-05 08:26] VITALS: BP 119/74
[2017-01-05] MEDS: MICAFUNGIN 100 MG in SODIUM CHLORIDE 0.9% 100 ML IV SCH (13:25)
[2017-01-05] MEDS: ENOXAPARIN 40 MG/0.4 ML SQ SCH (14:39)
[2017-01-05] MEDS: AMPICILLIN/SULBACTAM 3 GM in SODIUM CHLORIDE 0.9% 100 ML IV SCH ×2 (14:39→21:10)
[2017-01-05 15:17] VITALS: BP 121/74
[2017-01-05 19:04] VITALS: BP 134/88
[2017-01-06 03:23] VITALS: BP 112/70
[2017-01-06] MEDS: AMPICILLIN/SULBACTAM 3 GM in SODIUM CHLORIDE 0.9% 100 ML IV SCH ×3 (05:10→20:49)
[2017-01-06 07:43] VITALS: BP 118/74
[2017-01-06] MEDS: MULTIVITAMINS WITH IRON TABLET PO SCH (09:18)
[2017-01-06] MEDS: HYDROCHLOROTHIAZIDE 12.5 MG CAPSULE PO SCH (09:18)
[2017-01-06] MEDS: PANTOPROZOLE 40MG TABLET PO SCH (09:18)
[2017-01-06] MEDS: BETAMETHASONE/CLOTRIMAZOLE CRM 1%-0.05%, 15GM TP SCH ×2 (09:19→20:50)
[2017-01-06] MEDS: POTASSIUM CHLORIDE 20 MEQ TAB.ER.PRT PO SCH (09:19)
[2017-01-06] MEDS: MICAFUNGIN 100 MG in SODIUM CHLORIDE 0.9% 100 ML IV SCH (13:15)
[2017-01-06 14:33] VITALS: BP 121/88
[2017-01-06] MEDS: ENOXAPARIN 40 MG/0.4 ML SQ SCH (15:21)
[2017-01-06 19:23] VITALS: BP 114/72
[2017-01-07 03:39] VITALS: BP 118/72
[2017-01-07] MEDS: AMPICILLIN/SULBACTAM 3 GM in SODIUM CHLORIDE 0.9% 100 ML IV SCH ×3 (04:58→22:45)
[2017-01-07 07:23] VITALS: BP 120/77
[2017-01-07] MEDS: HYDROCHLOROTHIAZIDE 12.5 MG CAPSULE PO SCH (07:45)
[2017-01-07] MEDS: POTASSIUM CHLORIDE 20 MEQ TAB.ER.PRT PO SCH (07:45)
[2017-01-07] MEDS: MULTIVITAMINS WITH IRON TABLET PO SCH (07:45)
[2017-01-07] MEDS: PANTOPROZOLE 40MG TABLET PO SCH (07:46)
[2017-01-07] MEDS: BETAMETHASONE/CLOTRIMAZOLE CRM 1%-0.05%, 15GM TP SCH ×2 (07:46→21:13)
[2017-01-07 13:23] VITALS: BP 110/72
[2017-01-07] MEDS: ENOXAPARIN 40 MG/0.4 ML SQ SCH (14:06)
[2017-01-07] MEDS: MICAFUNGIN 100 MG in SODIUM CHLORIDE 0.9% 100 ML IV SCH (14:06)
[2017-01-07 20:01] VITALS: BP 116/75
[2017-01-08 02:10] VITALS: BP 111/70
[2017-01-08] MEDS: AMPICILLIN/SULBACTAM 3 GM in SODIUM CHLORIDE 0.9% 100 ML IV SCH ×2 (05:58→15:58)
[2017-01-08 06:45] VITALS: BP 125/82
[2017-01-08] MEDS: MULTIVITAMINS WITH IRON TABLET PO SCH (08:15)
[2017-01-08] MEDS: POTASSIUM CHLORIDE 20 MEQ TAB.ER.PRT PO SCH (08:15)
[2017-01-08] MEDS: PANTOPROZOLE 40MG TABLET PO SCH (08:16)
[2017-01-08] MEDS: HYDROCHLOROTHIAZIDE 12.5 MG CAPSULE PO SCH (08:16)
[2017-01-08] MEDS: BETAMETHASONE/CLOTRIMAZOLE CRM 1%-0.05%, 15GM TP SCH ×2 (11:55→21:27)
[2017-01-08 12:46] VITALS: BP 134/79
[2017-01-08] MEDS: MICAFUNGIN 100 MG in SODIUM CHLORIDE 0.9% 100 ML IV SCH (14:37)
[2017-01-08] MEDS: ENOXAPARIN 40 MG/0.4 ML SQ SCH (14:40)
[2017-01-08 19:25] VITALS: BP 127/77
[2017-01-09] MEDS: AMPICILLIN/SULBACTAM 3 GM in SODIUM CHLORIDE 0.9% 100 ML IV SCH ×3 (00:04→15:56)
[2017-01-09 02:05] VITALS: BP 121/73
[2017-01-09 06:57] VITALS: BP 112/72
[2017-01-09] MEDS: MULTIVITAMINS WITH IRON TABLET PO SCH (07:36)
[2017-01-09] MEDS: PANTOPROZOLE 40MG TABLET PO SCH (07:36)
[2017-01-09] MEDS: HYDROCHLOROTHIAZIDE 12.5 MG CAPSULE PO SCH (07:36)
[2017-01-09] MEDS: POTASSIUM CHLORIDE 20 MEQ TAB.ER.PRT PO SCH (07:36)
[2017-01-09] MEDS: BETAMETHASONE/CLOTRIMAZOLE CRM 1%-0.05%, 15GM TP SCH ×2 (07:46→20:38)
[2017-01-09 12:57] VITALS: BP 116/72
[2017-01-09] MEDS: MICAFUNGIN 100 MG in SODIUM CHLORIDE 0.9% 100 ML IV SCH (13:44)
[2017-01-09] MEDS: ENOXAPARIN 40 MG/0.4 ML SQ SCH (13:44)
[2017-01-09 19:33] VITALS: BP 115/72
[2017-01-10 00:01] VITALS: BP 122/77
[2017-01-10 04:35] LABS: ASPARTATE AMINO TRANSFERASE 45 U/L (15-37); BLOOD UREA NITROGEN 14 mg/dL (7-18)
[2017-01-10 07:28] VITALS: BP 139/77
[2017-01-10] MEDS: PANTOPROZOLE 40MG TABLET PO SCH (08:58)
[2017-01-10] MEDS: MULTIVITAMINS WITH IRON TABLET PO SCH (08:58)
[2017-01-10] MEDS: BETAMETHASONE/CLOTRIMAZOLE CRM 1%-0.05%, 15GM TP SCH ×2 (08:58→20:01)
[2017-01-10] MEDS: AMPICILLIN/SULBACTAM 3 GM in SODIUM CHLORIDE 0.9% 100 ML IV SCH ×3 (08:58→16:13)
[2017-01-10] MEDS: POTASSIUM CHLORIDE 20 MEQ TAB.ER.PRT PO SCH (08:58)
[2017-01-10] MEDS: HYDROCHLOROTHIAZIDE 12.5 MG CAPSULE PO SCH (08:58)
[2017-01-10 13:25] VITALS: BP 114/71
[2017-01-10] MEDS: ENOXAPARIN 40 MG/0.4 ML SQ SCH (13:37)
[2017-01-10] MEDS: MICAFUNGIN 100 MG in SODIUM CHLORIDE 0.9% 100 ML IV SCH (13:37)
[2017-01-10 19:09] VITALS: BP 102/73
[2017-01-11] MEDS: AMPICILLIN/SULBACTAM 3 GM in SODIUM CHLORIDE 0.9% 100 ML IV SCH ×4 (00:07→23:29)
[2017-01-11 01:47] VITALS: BP 108/68
[2017-01-11 06:41] VITALS: BP 118/79
[2017-01-11] MEDS: POTASSIUM CHLORIDE 20 MEQ TAB.ER.PRT PO SCH (09:09)
[2017-01-11] MEDS: PANTOPROZOLE 40MG TABLET PO SCH (09:09)
[2017-01-11] MEDS: MULTIVITAMINS WITH IRON TABLET PO SCH (09:09)
[2017-01-11] MEDS: HYDROCHLOROTHIAZIDE 12.5 MG CAPSULE PO SCH (09:09)
[2017-01-11] MEDS: BETAMETHASONE/CLOTRIMAZOLE CRM 1%-0.05%, 15GM TP SCH ×2 (09:11→20:55)
[2017-01-11] MEDS: MICAFUNGIN 100 MG in SODIUM CHLORIDE 0.9% 100 ML IV SCH (13:31)
[2017-01-11] MEDS: ENOXAPARIN 40 MG/0.4 ML SQ SCH (13:32)
[2017-01-11 13:54] VITALS: BP 114/70
[2017-01-11 19:25] VITALS: BP 111/68
[2017-01-12 02:09] VITALS: BP 111/70
[2017-01-12 08:00] VITALS: BP 114/74
[2017-01-12] MEDS: MULTIVITAMINS WITH IRON TABLET PO SCH (08:09)
[2017-01-12] MEDS: POTASSIUM CHLORIDE 20 MEQ TAB.ER.PRT PO SCH (08:09)
[2017-01-12] MEDS: PANTOPROZOLE 40MG TABLET PO SCH (08:09)
[2017-01-12] MEDS: AMPICILLIN/SULBACTAM 3 GM in SODIUM CHLORIDE 0.9% 100 ML IV SCH ×2 (08:09→16:45)
[2017-01-12] MEDS: HYDROCHLOROTHIAZIDE 12.5 MG CAPSULE PO SCH (08:09)
[2017-01-12] MEDS: BETAMETHASONE/CLOTRIMAZOLE CRM 1%-0.05%, 15GM TP SCH ×2 (08:10→21:26)
[2017-01-12 13:24] VITALS: BP 128/80
[2017-01-12] MEDS: MICAFUNGIN 100 MG in SODIUM CHLORIDE 0.9% 100 ML IV SCH (14:00)
[2017-01-12] MEDS: ENOXAPARIN 40 MG/0.4 ML SQ SCH (14:00)
[2017-01-12 19:43] VITALS: BP 121/75
[2017-01-13] MEDS: AMPICILLIN/SULBACTAM 3 GM in SODIUM CHLORIDE 0.9% 100 ML IV SCH ×3 (00:39→16:12)
[2017-01-13 01:06] VITALS: BP 111/71
[2017-01-13 07:18] VITALS: BP 116/77
[2017-01-13] MEDS: MULTIVITAMINS WITH IRON TABLET PO SCH (07:51)
[2017-01-13] MEDS: HYDROCHLOROTHIAZIDE 12.5 MG CAPSULE PO SCH (07:52)
[2017-01-13] MEDS: POTASSIUM CHLORIDE 20 MEQ TAB.ER.PRT PO SCH (07:52)
[2017-01-13] MEDS: PANTOPROZOLE 40MG TABLET PO SCH (07:52)
[2017-01-13] MEDS: BETAMETHASONE/CLOTRIMAZOLE CRM 1%-0.05%, 15GM TP SCH ×2 (07:52→21:00)
[2017-01-13] MEDS: ENOXAPARIN 40 MG/0.4 ML SQ SCH (13:32)
[2017-01-13] MEDS: MICAFUNGIN 100 MG in SODIUM CHLORIDE 0.9% 100 ML IV SCH (13:32)
[2017-01-13 13:57] VITALS: BP 114/75
[2017-01-13 18:38] VITALS: BP 122/76
[2017-01-14 00:59] VITALS: BP 101/65
[2017-01-14] MEDS: AMPICILLIN/SULBACTAM 3 GM in SODIUM CHLORIDE 0.9% 100 ML IV SCH ×3 (01:06→17:27)
[2017-01-14 07:24] VITALS: BP 122/75
[2017-01-14] MEDS: HYDROCHLOROTHIAZIDE 12.5 MG CAPSULE PO SCH (08:09)
[2017-01-14] MEDS: MULTIVITAMINS WITH IRON TABLET PO SCH (08:09)
[2017-01-14] MEDS: POTASSIUM CHLORIDE 20 MEQ TAB.ER.PRT PO SCH (08:09)
[2017-01-14] MEDS: PANTOPROZOLE 40MG TABLET PO SCH (08:09)
[2017-01-14] MEDS: BETAMETHASONE/CLOTRIMAZOLE CRM 1%-0.05%, 15GM TP SCH ×2 (08:10→21:00)
[2017-01-14] MEDS ORDERED: HYDR12.53 PO (09:44)
[2017-01-14] MEDS ORDERED: CLOT15CR6 TP (09:44)
[2017-01-14 13:12] VITALS: BP 113/74
[2017-01-14] MEDS: MICAFUNGIN 100 MG in SODIUM CHLORIDE 0.9% 100 ML IV SCH (13:47)
[2017-01-14] MEDS: ENOXAPARIN 40 MG/0.4 ML SQ SCH (14:00)
[2017-01-14 19:36] VITALS: BP 113/69
[2017-01-15] MEDS: AMPICILLIN/SULBACTAM 3 GM in SODIUM CHLORIDE 0.9% 100 ML IV SCH ×2 (00:59→08:37)
[2017-01-15 01:54] VITALS: BP 109/70
[2017-01-15 07:45] VITALS: BP 116/73
[2017-01-15] MEDS: POTASSIUM CHLORIDE 20 MEQ TAB.ER.PRT PO SCH (08:37)
[2017-01-15] MEDS: HYDROCHLOROTHIAZIDE 12.5 MG CAPSULE PO SCH (08:37)
[2017-01-15] MEDS: PANTOPROZOLE 40MG TABLET PO SCH (08:37)
[2017-01-15] MEDS: MULTIVITAMINS WITH IRON TABLET PO SCH (08:37)
[2017-01-15] MEDS: BETAMETHASONE/CLOTRIMAZOLE CRM 1%-0.05%, 15GM TP SCH (08:37)
[2017-01-15 12:52] VITALS: BP 117/73
[2017-01-15] MEDS: MICAFUNGIN 100 MG in SODIUM CHLORIDE 0.9% 100 ML IV SCH (13:54)
[2017-01-15] MEDS: ENOXAPARIN 40 MG/0.4 ML SQ SCH (13:54)
== END 2017-01-15 15:52 | disposition home or self-care (01) | DRG 464 ==
LOC: ED 23:59 → EDIP 12-01 03:12 → 3NE 12-01 04:23 → 4WST 12-04 19:36 → CCU 12-14 23:38 → 4WST 12-15 01:50 → 3NE 12-25 23:45
PROVIDERS: ATTEND Family Medicine
PROC: 0QBM0ZZ Excision of Left Tarsal, Open Approach (ICD-10-PCS; 2016-12-04)
PROC: 0JBR0ZZ Excision of Left Foot Subcutaneous Tissue and Fascia, Open Approach (ICD-10-PCS; principal; 2016-12-04 16:30)
PROC: 02HV33Z Insertion of Infusion Device into Superior Vena Cava, Percutaneous Approach (ICD-10-PCS; 2016-12-07)
PROC: B5181ZA Fluoroscopy of Superior Vena Cava using Low Osmolar Contrast, Guidance (ICD-10-PCS; 2016-12-07)
PROC: B548ZZA Ultrasonography of Superior Vena Cava, Guidance (ICD-10-PCS; 2016-12-07)
PROC: 0DJ08ZZ Inspection of Upper Intestinal Tract, Via Natural or Artificial Opening Endoscopic (ICD-10-PCS; 2016-12-15)
DX: M86.172 Other acute osteomyelitis, left ankle and foot (principal); L03.116 Cellulitis of left lower limb; E44.0 Moderate protein-calorie malnutrition; E87.1 Hypo-osmolality and hyponatremia; L97.429 Non-pressure chronic ulcer of left heel and midfoot with unspecified severity; I96 Gangrene, not elsewhere classified; E87.6 Hypokalemia; R74.0 Nonspecific elevation of levels of transaminase and lactic acid dehydrogenase [LDH]; G40.909 Epilepsy, unspecified, not intractable, without status epilepticus; I10 Essential (primary) hypertension; L21.9 Seborrheic dermatitis, unspecified; S86.019A Strain of unspecified Achilles tendon, initial encounter; I44.7 Left bundle-branch block, unspecified; K21.0 Gastro-esophageal reflux disease with esophagitis; K44.9 Diaphragmatic hernia without obstruction or gangrene; R13.19 Other dysphagia; L50.9 Urticaria, unspecified; Z59.0 Homelessness; Z87.11 Personal history of peptic ulcer disease; Z87.891 Personal history of nicotine dependence; Z86.14 Personal history of Methicillin resistant Staphylococcus aureus infection; Z68.22 Body mass index [BMI] 22.0-22.9, adult
CPT/HCPCS: 36415; 36569; 71010; 74220; 76937; 77001; 80048; 80053; 80074; 80202; 82565; 82728; 83516; 83605; 83735; 84100; 84132; 84145; 84484; 85025; 85610; 85651; 86038; 86140; 86141; 87040; 87070; 87075; 87076; 87077; 87147; 87181; 87186; 87205; 88305; 88313; 93005; 93306; 93922; 96365; 96372; A9585; J0295; J0690; J1100; J1170; J1335; J1650; J2248; J2250; J2405; J2543; J2704; J3010; J3370; J3480; Q9967; C1751; J0330; J1200; J2370; J3475; J7040; J7050; Q0177

== ENCOUNTER 2017-09-04 08:25 | Emergency (ER) | payer MEDICAID, OTHER ==
[~2017-09-04] VITALS: Ht 177.8 cm; Wt 76.2 kg
[~2017-09-04 08:25] MED LIST changes: +CLOT15CR6 TP; +HYDR12.53 PO
[2017-09-04 09:53] LABS: ASPARTATE AMINO TRANSFERASE 76 U/L (15-37); BLOOD UREA NITROGEN 6 mg/dL (7-18)
[2017-09-04 10:06] LABS: HEMATOCRIT 41.5 % (39.2-51.8); HEMOGLOBIN 13.9 g/dL (13.7-18.0); WHITE BLOOD COUNT 5.1 x10^3/uL (3.4-10)
[2017-09-04 10:07] LABS: DIFF TOTAL CELLS COUNTED 100 CELL DIFF
[2017-09-04 10:28] LABS: VERIFY COUNTS? YES
[2017-09-04] MEDS ORDERED: POTASSIUM CHLORIDE 20 MEQ TAB.ER.PRT ONE (11:29)
[2017-09-04] MEDS ORDERED: POTASSIUM CHLORIDE 20 MEQ TAB.ER.PRT PO ONE (11:30)
[2017-09-04 11:37] VITALS: BP 147/70
== END 2017-09-04 12:39 | disposition home or self-care (01) ==
LOC: ED 11:14
DX: M25.741 Osteophyte, right hand (principal); M25.742 Osteophyte, left hand; I10 Essential (primary) hypertension
CPT/HCPCS: 36415; 71010; 71250; 80053; 83880; 85025; 99285

== ENCOUNTER 2017-09-06 19:55 | Emergency (ER) | payer OTHER | END 2017-09-06 21:12 | disposition home or self-care (01) | LOC: ED 21:11 | DX: F10.129 Alcohol abuse with intoxication, unspecified (principal); F51.04 Psychophysiologic insomnia; I10 Essential (primary) hypertension; E11.9 Type 2 diabetes mellitus without complications | CPT/HCPCS: 99283 ==

== ENCOUNTER 2017-09-28 02:16 | Emergency (ER) | payer OTHER ==
[~2017-09-28] VITALS: Ht 177.8 cm; Wt 75.4 kg
[2017-09-28 02:18] VITALS: BP 157/101
== END 2017-09-28 05:12 | disposition home or self-care (01) ==
LOC: ED 03:26
DX: J20.9 Acute bronchitis, unspecified (principal); E11.9 Type 2 diabetes mellitus without complications; I10 Essential (primary) hypertension; Z87.891 Personal history of nicotine dependence; F10.20 Alcohol dependence, uncomplicated; Z91.030 Bee allergy status; Z91.013 Allergy to seafood; Z60.9 Problem related to social environment, unspecified; Z91.14 Patient's other noncompliance with medication regimen; Z72.9 Problem related to lifestyle, unspecified
CPT/HCPCS: 71046; 99284

== ENCOUNTER 2017-11-13 15:40 | Emergency (ER) | payer SELFPAY ==
[~2017-11-13] VITALS: Ht 177.8 cm; Wt 71.8 kg
[2017-11-13] MEDS ORDERED: DIPHENHYDRAMINE 25 MG CAPSULE ONE (17:21)
[2017-11-13] MEDS ORDERED: DIPHENHYDRAMINE 25 MG CAPSULE PO ONE (17:30)
[2017-11-13 18:38] VITALS: BP 122/64
== END 2017-11-13 18:40 | disposition home or self-care (01) ==
LOC: ED 16:38
DX: L50.1 Idiopathic urticaria (principal); E11.9 Type 2 diabetes mellitus without complications; I10 Essential (primary) hypertension; F10.20 Alcohol dependence, uncomplicated; Z91.030 Bee allergy status; Z91.013 Allergy to seafood
CPT/HCPCS: 99282; Q0163

== ENCOUNTER 2017-11-19 22:03 | Emergency (ER) | payer SELFPAY ==
[~2017-11-19] VITALS: Ht 177.8 cm; Wt 70.6 kg
[2017-11-19 22:09] VITALS: BP 164/82
[2017-11-19] MEDS ORDERED: DIPHENHYDRAMINE 25 MG CAPSULE ONE (22:50)
[2017-11-19] MEDS ORDERED: DIPHENHYDRAMINE 25 MG CAPSULE PO ONE (23:00)
== END 2017-11-19 23:09 | disposition home or self-care (01) ==
LOC: ED 23:06
DX: R21 Rash and other nonspecific skin eruption (principal); L20.9 Atopic dermatitis, unspecified; I10 Essential (primary) hypertension; E11.9 Type 2 diabetes mellitus without complications; Z72.9 Problem related to lifestyle, unspecified
CPT/HCPCS: 99283; Q0163

== ENCOUNTER 2017-11-25 22:46 | Emergency (ER) | payer SELFPAY ==
[~2017-11-25] VITALS: Ht 167.6 cm; Wt 55.4 kg
[2017-11-25 22:52] VITALS: BP 148/82
== END 2017-11-26 01:06 | disposition home or self-care (01) ==
LOC: ED 23:26
DX: B85.1 Pediculosis due to Pediculus humanus corporis (principal); L29.8 Other pruritus; E11.9 Type 2 diabetes mellitus without complications; I10 Essential (primary) hypertension; F17.200 Nicotine dependence, unspecified, uncomplicated; F10.20 Alcohol dependence, uncomplicated; Z91.013 Allergy to seafood; Z91.030 Bee allergy status
CPT/HCPCS: 99281

== ENCOUNTER 2017-12-07 17:27 | Emergency (ER) | payer OTHER ==
[~2017-12-07] VITALS: Ht 177.8 cm; Wt 69.5 kg
[2017-12-07 17:29] VITALS: BP 138/71
== END 2017-12-07 18:20 | disposition left against medical advice (07) ==
LOC: ED 17:40
DX: R21 Rash and other nonspecific skin eruption (principal); E11.9 Type 2 diabetes mellitus without complications; I10 Essential (primary) hypertension
CPT/HCPCS: 99283

== ENCOUNTER 2017-12-17 06:12 | Emergency (ER) | payer SELFPAY ==
[~2017-12-17] VITALS: Ht 177.8 cm; Wt 73.9 kg
[2017-12-17 06:14] VITALS: BP 147/79
[2017-12-17] MEDS ORDERED: DIPHENHYDRAMINE 50 MG CAPSULE ONE (06:46)
[2017-12-17] MEDS ORDERED: DIPHENHYDRAMINE 50 MG CAPSULE PO ONE (07:00)
== END 2017-12-17 06:54 | disposition home or self-care (01) ==
LOC: ED 06:27
DX: L25.9 Unspecified contact dermatitis, unspecified cause (principal); E11.9 Type 2 diabetes mellitus without complications
CPT/HCPCS: 99283

== ENCOUNTER 2017-12-19 20:08 | Emergency (ER) | payer SELFPAY ==
[~2017-12-19] VITALS: Ht 177.8 cm; Wt 65.2 kg
[2017-12-19 20:12] VITALS: BP 136/92
== END 2017-12-19 20:38 | disposition home or self-care (01) ==
LOC: ED 20:30
DX: L50.1 Idiopathic urticaria (principal); Z72.9 Problem related to lifestyle, unspecified; E11.9 Type 2 diabetes mellitus without complications; I10 Essential (primary) hypertension; Z59.0 Homelessness
CPT/HCPCS: 99283

== ENCOUNTER 2017-12-29 11:54 | Emergency (ER) | payer SELFPAY ==
[~2017-12-29] VITALS: Ht 177.8 cm; Wt 71.9 kg
[2017-12-29 12:01] VITALS: BP 142/80
[2017-12-29 13:20] LABS: BASOPHILS # (AUTO) 0.03 x10^3/uL (0-0.1); BASOPHILS % (AUTO) 0 % (0-1); EOSINOPHILS % (AUTO) 13 % (1-7); LYMPHOCYTES # (AUTO) 0.77 x10^3/uL (1-3.4); LYMPHOCYTES % (AUTO) 9 % (22-44); MD NO; MEAN CORPUSCULAR HEMOGLOBIN 28.5 pg (27.5-34.5); MEAN CORPUSCULAR HGB CONC 33.2 g/dL (33.2-36.2); MEAN CORPUSCULAR VOLUME 85.7 fL (81-97); MEAN PLATELET VOLUME 6.2 fL (7.4-10.4); MONOCYTES # (AUTO) 0.95 x10^3/uL (0.2-0.8); MONOCYTES % (AUTO) 12 % (2-9); NEUTROPHILS # (AUTO) 5.38 x10^3/uL (1.8-6.8); NEUTROPHILS % (AUTO) 65 % (42-75); PLATELET COUNT 371 x10^3/uL (130-400); RED BLOOD COUNT 4.67 x10^6/uL (4.38-5.82); RED CELL DISTRIBUTION WIDTH 14.7 % (9.4-14.8)
[2017-12-29 13:30] LABS: ANION GAP 8 mmol/L (5-15); CALCIUM 8.4 mg/dL (8.5-10.1); CHLORIDE 107 mmol/L (98-107)
[2017-12-29 13:38] LABS: ALANINE AMINOTRANSFERASE 26 U/L (12-78); ALKALINE PHOSPHATASE 73 U/L (45-117); BILIRUBIN,TOTAL 0.4 mg/dL (0.2-1.0); CREATININE 0.76 mg/dL (0.7-1.3); TOTAL PROTEIN 7.9 g/dL (6.4-8.2); TROPONIN I < 0.015 ng/mL (0.000-0.045)
== END 2017-12-29 17:43 | disposition home or self-care (01) ==
LOC: ED 16:30
DX: R60.0 Localized edema (principal); L20.84 Intrinsic (allergic) eczema; B86 Scabies; E11.9 Type 2 diabetes mellitus without complications; I10 Essential (primary) hypertension; F10.20 Alcohol dependence, uncomplicated; Z59.0 Homelessness
CPT/HCPCS: 36415; 71045; 80053; 83880; 84484; 85025; 93005; 99285

== ENCOUNTER 2018-01-02 11:57 | Emergency (ER) | payer SELFPAY ==
[~2018-01-02] VITALS: Ht 177.8 cm; Wt 70.0 kg
[2018-01-02 11:59] VITALS: BP 122/71
[2018-01-02] MEDS ORDERED: NAPROXEN 500 MG TABLET PO ONE (12:30)
== END 2018-01-02 13:02 | disposition home or self-care (01) ==
LOC: ED 12:56
DX: B86 Scabies (principal); G89.29 Other chronic pain; M54.5 Low back pain; I10 Essential (primary) hypertension; E11.9 Type 2 diabetes mellitus without complications; Z59.0 Homelessness
CPT/HCPCS: 99283

== ENCOUNTER 2018-01-06 23:01 | Emergency (ER) | payer SELFPAY ==
[~2018-01-06] VITALS: Ht 177.8 cm; Wt 80.0 kg
== END 2018-01-07 | disposition home or self-care (01) ==
LOC: ED 23:34
DX: F10.220 Alcohol dependence with intoxication, uncomplicated (principal); E11.9 Type 2 diabetes mellitus without complications; I10 Essential (primary) hypertension; E87.1 Hypo-osmolality and hyponatremia
CPT/HCPCS: 99283

== ENCOUNTER 2018-01-10 19:18 | Emergency (ER) | payer SELFPAY ==
[~2018-01-10] VITALS: Ht 177.8 cm; Wt 75.0 kg
[2018-01-10 19:37] VITALS: BP 134/82
== END 2018-01-10 19:50 | disposition home or self-care (01) ==
LOC: ED 19:44
DX: B85.1 Pediculosis due to Pediculus humanus corporis (principal); Z72.9 Problem related to lifestyle, unspecified; E11.9 Type 2 diabetes mellitus without complications; I10 Essential (primary) hypertension; F17.200 Nicotine dependence, unspecified, uncomplicated
CPT/HCPCS: 99283

== ENCOUNTER 2018-01-12 00:55 | Emergency (ER) | payer SELFPAY ==
[~2018-01-12] VITALS: Ht 177.8 cm; Wt 75.0 kg
[2018-01-12 00:58] VITALS: BP 132/86
[2018-01-12] MEDS ORDERED: DIPHENHYDRAMINE 50 MG CAPSULE ONE (01:18)
[2018-01-12] MEDS ORDERED: DIPHENHYDRAMINE 50 MG CAPSULE PO ONE (01:30)
[2018-01-12] MEDS ORDERED: HYDROCORTISONE CRM 1%, 30GM TP ONE (01:30)
== END 2018-01-12 01:44 | disposition home or self-care (01) ==
LOC: ED 01:18
DX: B85.1 Pediculosis due to Pediculus humanus corporis (principal); Z72.9 Problem related to lifestyle, unspecified; I10 Essential (primary) hypertension; E11.9 Type 2 diabetes mellitus without complications; F10.20 Alcohol dependence, uncomplicated
CPT/HCPCS: 99283

== ENCOUNTER 2018-01-13 16:01 | Emergency (ER) | payer SELFPAY ==
[~2018-01-13] VITALS: Ht 177.8 cm; Wt 69.9 kg
[2018-01-13 16:05] VITALS: BP 142/79
== END 2018-01-13 16:53 | disposition home or self-care (01) ==
LOC: ED 16:47
DX: S50.862A Insect bite (nonvenomous) of left forearm, initial encounter (principal); S50.861A Insect bite (nonvenomous) of right forearm, initial encounter; I10 Essential (primary) hypertension; E11.9 Type 2 diabetes mellitus without complications; W57.XXXA Bitten or stung by nonvenomous insect and other nonvenomous arthropods, initial encounter; Y93.89 Activity, other specified; Y92.89 Other specified places as the place of occurrence of the external cause; Y99.8 Other external cause status
CPT/HCPCS: 99283

== ENCOUNTER 2018-01-15 04:54 | Emergency (ER) | payer OTHER ==
[2018-01-15 05:01] VITALS: BP 149/89
== END 2018-01-15 06:18 | disposition left against medical advice (07) ==
LOC: ED 06:13
DX: R52 Pain, unspecified (principal); Z53.21 Procedure and treatment not carried out due to patient leaving prior to being seen by health care provider

== ENCOUNTER 2018-03-28 10:09 | Emergency (ER) | payer MEDICAID, OTHER ==
[~2018-03-28] VITALS: Ht 177.8 cm; Wt 74.0 kg
[2018-03-28 10:12] VITALS: BP 142/88
== END 2018-03-28 11:54 | disposition home or self-care (01) ==
LOC: ED 11:50
DX: M25.572 Pain in left ankle and joints of left foot (principal); M79.672 Pain in left foot; L24.5 Irritant contact dermatitis due to other chemical products; I10 Essential (primary) hypertension; F10.20 Alcohol dependence, uncomplicated; E11.9 Type 2 diabetes mellitus without complications; Z87.891 Personal history of nicotine dependence
CPT/HCPCS: 99284

== ENCOUNTER 2018-03-31 16:14 | Emergency (ER) | payer SELFPAY ==
[~2018-03-31] VITALS: Ht 177.8 cm; Wt 74.6 kg
[2018-03-31 16:20] VITALS: BP 158/84
== END 2018-03-31 17:44 ==
LOC: ED 17:17
DX: Z00.00 Encounter for general adult medical examination without abnormal findings (principal); R21 Rash and other nonspecific skin eruption; I10 Essential (primary) hypertension
CPT/HCPCS: 99283

== ENCOUNTER 2018-06-14 20:31 | Emergency (ER) | payer MEDICAID ==
[~2018-06-14] VITALS: Ht 177.8 cm; Wt 73.3 kg
[~2018-06-14 20:31] MED LIST changes: -SENN1TAB7 PO; +SENN1TAB8 PO; -THIA100T6 PO; +THIA100T67 PO
[2018-06-14 20:39] VITALS: BP 113/68
== END 2018-06-14 21:40 | disposition home or self-care (01) ==
LOC: ED 21:07
DX: L50.9 Urticaria, unspecified (principal); E11.9 Type 2 diabetes mellitus without complications; I10 Essential (primary) hypertension; M54.9 Dorsalgia, unspecified; Z72.89 Other problems related to lifestyle; Z91.14 Patient's other noncompliance with medication regimen
CPT/HCPCS: 99283

== ENCOUNTER 2018-06-20 15:02 | Emergency (ER) | payer MEDICAID ==
[~2018-06-20] VITALS: Ht 177.8 cm; Wt 75.0 kg
[2018-06-20 15:41] VITALS: BP 139/72
== END 2018-06-20 19:00 | disposition home or self-care (01) ==
LOC: ED 18:55
DX: M54.5 Low back pain (principal); G89.29 Other chronic pain; M54.2 Cervicalgia; E11.9 Type 2 diabetes mellitus without complications; I10 Essential (primary) hypertension
CPT/HCPCS: 99283

== ENCOUNTER 2018-06-21 13:45 | Inpatient (IN) | payer MEDICAID ==
[~2018-06-21] VITALS: Ht 177.8 cm; Wt 70.6 kg
[2018-06-21] MEDS ORDERED: SODIUM CHLORIDE FLUSH 10ML SYR IVF ONE (15:00)
[2018-06-21] MEDS ORDERED: VANCOMYCIN 1,400 MG in SODIUM CHLORIDE 0.9% 250 ML IV ONE (15:00)
[2018-06-21] MEDS ORDERED: PERMETHRIN CRM 5%, 60GM TP SCH (15:00)
[2018-06-21] MEDS ORDERED: VANCOMYCIN PER PHARMACY MC ONE (15:00)
[2018-06-21] MEDS ORDERED: AMPICILLIN/SULBACTAM 3 GM in SODIUM CHLORIDE 0.9% 100 ML IVPB ONE (15:00)
[2018-06-21 15:36] LABS: ALBUMIN 3.1 g/dL (3.4-5.0); ANION GAP 10 mmol/L (5-15); CALCIUM 8.4 mg/dL (8.5-10.1); CHLORIDE 100 mmol/L (98-107); CREATININE 0.67 mg/dL (0.7-1.3)
[2018-06-21 15:37] LABS: BASOPHILS # (AUTO) 0.02 x10^3/uL (0-0.1); BASOPHILS % (AUTO) 0 % (0-1); EOSINOPHILS # (AUTO) 0.09 x10^3/uL (0-0.4); EOSINOPHILS % (AUTO) 1 % (1-7); LYMPHOCYTES # (AUTO) 0.45 x10^3/uL (1-3.4); LYMPHOCYTES % (AUTO) 6 % (22-44); MD NO; MEAN CORPUSCULAR HEMOGLOBIN 27.4 pg (27.5-34.5); MEAN CORPUSCULAR HGB CONC 32.9 g/dL (33.2-36.2); MEAN CORPUSCULAR VOLUME 83.3 fL (81-97); MEAN PLATELET VOLUME 6.9 fL (7.4-10.4); MONOCYTES # (AUTO) 0.95 x10^3/uL (0.2-0.8); MONOCYTES % (AUTO) 13 % (2-9); NEUTROPHILS # (AUTO) 5.59 x10^3/uL (1.8-6.8); NEUTROPHILS % (AUTO) 79 % (42-75); PLATELET COUNT 366 x10^3/uL (130-400); RED BLOOD COUNT 4.67 x10^6/uL (4.38-5.82); RED CELL DISTRIBUTION WIDTH 16.3 % (9.4-14.8)
[2018-06-21] MEDS ORDERED: PERMETHRIN CRM 5%, 60GM TP ONE ×2 (17:30→21:00)
[2018-06-21] MEDS ORDERED: LABETALOL 5MG/ML, 20ML IVPush PRN (17:30)
[2018-06-21] MEDS ORDERED: ONDANSETRON 2MG/ML, 2ML IVPush PRN (17:30)
[2018-06-21] MEDS ORDERED: BISACODYL 10 MG SUPP PR PRN (17:30)
[2018-06-21] MEDS ORDERED: KETOROLAC 30 MG/1 ML IV PRN (17:30)
[2018-06-21] MEDS ORDERED: POLYETHYLENE GLYCOL 17 GM PACKET PO PRN (17:30)
[2018-06-21] MEDS ORDERED: DOCUSATE 100 MG CAPSULE PO PRN (17:30)
[2018-06-21] MEDS ORDERED: VANCOMYCIN PER PHARMACY MC PRN (17:30)
[2018-06-21] MEDS ORDERED: PHARMACOKINETIC MONITORING MC PRN (18:00)
[2018-06-21 19:55] VITALS: BP 131/89
[2018-06-21] MEDS: ENOXAPARIN 40 MG/0.4 ML SQ SCH (22:04)
[2018-06-21] MEDS: AMPICILLIN/SULBACTAM 3 GM in SODIUM CHLORIDE 0.9% 100 ML IV SCH (22:04)
[2018-06-21] MEDS: SODIUM CHLORIDE FLUSH 10ML SYR IVF SCH (22:05)
[2018-06-21] MEDS ORDERED: SODIUM CHLORIDE 0.9% 1,000 ML IV ONE (23:00)
[2018-06-21] MEDS: ACETAMINOPHEN 325 MG TABLET PO PRN (23:14)
[2018-06-21] MEDS: PIPERONYL BUTOXIDE/PYRETHRINS SHAMPOO TP SCH (23:15)
[2018-06-22 01:27] VITALS: BP 121/71
[2018-06-22] MEDS: AMPICILLIN/SULBACTAM 3 GM in SODIUM CHLORIDE 0.9% 100 ML IV SCH ×4 (02:54→21:10)
[2018-06-22 05:39] LABS: BASOPHILS # (AUTO) 0.03 x10^3/uL (0-0.1); BASOPHILS % (AUTO) 0 % (0-1); EOSINOPHILS # (AUTO) 0.11 x10^3/uL (0-0.4); EOSINOPHILS % (AUTO) 2 % (1-7); LYMPHOCYTES # (AUTO) 0.51 x10^3/uL (1-3.4); LYMPHOCYTES % (AUTO) 7 % (22-44); MD NO; MEAN CORPUSCULAR HEMOGLOBIN 27.1 pg (27.5-34.5); MEAN CORPUSCULAR HGB CONC 32.9 g/dL (33.2-36.2); MEAN CORPUSCULAR VOLUME 82.6 fL (81-97); MEAN PLATELET VOLUME 6.7 fL (7.4-10.4); MONOCYTES # (AUTO) 0.95 x10^3/uL (0.2-0.8); MONOCYTES % (AUTO) 13 % (2-9); NEUTROPHILS # (AUTO) 5.76 x10^3/uL (1.8-6.8); NEUTROPHILS % (AUTO) 78 % (42-75); PLATELET COUNT 317 x10^3/uL (130-400); RED BLOOD COUNT 4.23 x10^6/uL (4.38-5.82); RED CELL DISTRIBUTION WIDTH 16.1 % (9.4-14.8)
[2018-06-22 05:44] LABS: ANION GAP 10 mmol/L (5-15); CHLORIDE 103 mmol/L (98-107); CREATININE 0.74 mg/dL (0.7-1.3)
[2018-06-22 07:28] VITALS: BP 140/80
[2018-06-22] MEDS: SODIUM CHLORIDE FLUSH 10ML SYR IVF SCH ×2 (09:21→19:42)
[2018-06-22] MEDS: ACETAMINOPHEN 325 MG TABLET PO PRN ×2 (09:32→16:09)
[2018-06-22] MEDS: VANCOMYCIN 1,400 MG in SODIUM CHLORIDE 0.9% 250 ML IV SCH (11:12)
[2018-06-22 14:58] VITALS: BP 159/77
[2018-06-22 19:55] VITALS: BP 139/80
[2018-06-22] MEDS: ENOXAPARIN 40 MG/0.4 ML SQ SCH (21:10)
[2018-06-23 01:12] VITALS: BP 132/75
[2018-06-23] MEDS: AMPICILLIN/SULBACTAM 3 GM in SODIUM CHLORIDE 0.9% 100 ML IV SCH ×2 (03:37→09:23)
[2018-06-23] MEDS: VANCOMYCIN 1,400 MG in SODIUM CHLORIDE 0.9% 250 ML IV SCH (04:17)
[2018-06-23 05:12] LABS: BASOPHILS # (AUTO) 0.05 x10^3/uL (0-0.1); BASOPHILS % (AUTO) 1 % (0-1); EOSINOPHILS # (AUTO) 0.02 x10^3/uL (0-0.4); EOSINOPHILS % (AUTO) 1 % (1-7); LYMPHOCYTES % (AUTO) 15 % (22-44); MD NO; MEAN CORPUSCULAR HGB CONC 33.7 g/dL (33.2-36.2); MEAN CORPUSCULAR VOLUME 82.9 fL (81-97); MEAN PLATELET VOLUME 6.4 fL (7.4-10.4); MONOCYTES % (AUTO) 15 % (2-9); NEUTROPHILS # (AUTO) 2.83 x10^3/uL (1.8-6.8); NEUTROPHILS % (AUTO) 69 % (42-75); PLATELET COUNT 263 x10^3/uL (130-400); RED BLOOD COUNT 4.01 x10^6/uL (4.38-5.82); RED CELL DISTRIBUTION WIDTH 16.4 % (9.4-14.8)
[2018-06-23 05:22] LABS: HCT (SEDRATE) 33.2 % (39.2-51.8)
[2018-06-23 05:30] LABS: CHLORIDE 99 mmol/L (98-107)
[2018-06-23 05:43] LABS: ALANINE AMINOTRANSFERASE 25 U/L (12-78); ALBUMIN 2.3 g/dL (3.4-5.0); ALKALINE PHOSPHATASE 85 U/L (45-117); ANION GAP 10 mmol/L (5-15); BILIRUBIN,TOTAL 0.7 mg/dL (0.2-1.0); CALCIUM 7.2 mg/dL (8.5-10.1); CREATININE 0.56 mg/dL (0.7-1.3); TOTAL PROTEIN 6.3 g/dL (6.4-8.2)
[2018-06-23 07:22] VITALS: BP 134/81
[2018-06-23] MEDS: SODIUM CHLORIDE FLUSH 10ML SYR IVF SCH ×2 (09:26→20:50)
[2018-06-23] MEDS: ACETAMINOPHEN 325 MG TABLET PO PRN (10:02)
[2018-06-23] MEDS: POTASSIUM CHLORIDE 20 MEQ TAB.ER.PRT PO SCH ×2 (10:02→16:11)
[2018-06-23] MEDS ORDERED: GADOBUTROL 7.5 MMOL/7.5 ML PFS ONE (15:15)
[2018-06-23] MEDS: CEFAZOLIN PMX 2GM/50ML 50 ML IV SCH ×2 (16:14→20:50)
[2018-06-23 18:26] VITALS: BP 127/79
[2018-06-23] MEDS: ENOXAPARIN 40 MG/0.4 ML SQ SCH (20:50)
[2018-06-24 02:35] VITALS: BP 120/71
[2018-06-24] MEDS: CEFAZOLIN PMX 2GM/50ML 50 ML IV SCH ×3 (04:46→21:15)
[2018-06-24 04:53] LABS: ANION GAP 9 mmol/L (5-15); CALCIUM 7.6 mg/dL (8.5-10.1); CHLORIDE 100 mmol/L (98-107)
[2018-06-24 04:54] LABS: CREATININE 0.59 mg/dL (0.7-1.3)
[2018-06-24 05:02] LABS: MEAN CORPUSCULAR HEMOGLOBIN 28.2 pg (27.5-34.5); MEAN CORPUSCULAR HGB CONC 33.9 g/dL (33.2-36.2); MEAN CORPUSCULAR VOLUME 83.2 fL (81-97); MEAN PLATELET VOLUME 6.8 fL (7.4-10.4); PLATELET COUNT 270 x10^3/uL (130-400); RED BLOOD COUNT 4.11 x10^6/uL (4.38-5.82); RED CELL DISTRIBUTION WIDTH 16.6 % (9.4-14.8)
[2018-06-24 07:02] VITALS: BP 137/79
[2018-06-24 07:15] LABS: MD YES
[2018-06-24 07:21] LABS: ANISOCYTOSIS 1+; BAND#(MANUAL) 0.23 x10^3/uL; BANDS%(MANUAL) 6 % (0-7); EOS% (MANUAL) 5 % (1-7); LYMPH#(MANUAL) 0.39 x10^3/uL (1-3.4); LYMPHS% (MANUAL) 10 % (22-44); METAMYELOCYTES# (MANUAL) 0.04 x10^3/uL (0-0); METAMYELOCYTES% (MANUAL) 1 % (0-1); MONOS#(MANUAL) 0.55 x10^3/uL (0.3-2.7); MONOS% (MANUAL) 14 % (2-9); SEGS% (MANUAL) 64 % (42-75)
[2018-06-24 07:22] LABS: <PLATELET ESTIMATE> ADEQUATE; OVALOCYTES 1+
[2018-06-24 07:23] LABS: <PLT MORPHOLOGY> NORMAL PLT MORPH
[2018-06-24] MEDS: POTASSIUM CHLORIDE 20 MEQ TAB.ER.PRT PO SCH ×2 (10:09→21:16)
[2018-06-24] MEDS: SODIUM CHLORIDE FLUSH 10ML SYR IVF SCH ×2 (10:09→21:00)
[2018-06-24 13:45] VITALS: BP 135/77
[2018-06-24 19:56] VITALS: BP 147/74
[2018-06-24] MEDS: ENOXAPARIN 40 MG/0.4 ML SQ SCH (21:15)
[2018-06-25 00:33] VITALS: BP 130/76
[2018-06-25] MEDS: CEFAZOLIN PMX 2GM/50ML 50 ML IV SCH ×3 (04:47→20:14)
[2018-06-25 07:08] VITALS: BP 130/72
[2018-06-25 08:05] LABS: BASOPHILS # (AUTO) 0.03 x10^3/uL (0-0.1); BASOPHILS % (AUTO) 1 % (0-1); EOSINOPHILS # (AUTO) 0.35 x10^3/uL (0-0.4); EOSINOPHILS % (AUTO) 8 % (1-7); LYMPHOCYTES # (AUTO) 0.58 x10^3/uL (1-3.4); LYMPHOCYTES % (AUTO) 13 % (22-44); MD NO; MEAN CORPUSCULAR HEMOGLOBIN 27.1 pg (27.5-34.5); MEAN CORPUSCULAR VOLUME 82.3 fL (81-97); MEAN PLATELET VOLUME 6.6 fL (7.4-10.4); MONOCYTES # (AUTO) 0.84 x10^3/uL (0.2-0.8); MONOCYTES % (AUTO) 19 % (2-9); NEUTROPHILS # (AUTO) 2.53 x10^3/uL (1.8-6.8); NEUTROPHILS % (AUTO) 58 % (42-75); PLATELET COUNT 316 x10^3/uL (130-400); RED BLOOD COUNT 4.43 x10^6/uL (4.38-5.82); RED CELL DISTRIBUTION WIDTH 16.8 % (9.4-14.8)
[2018-06-25 08:17] LABS: ANION GAP 8 mmol/L (5-15); CHLORIDE 103 mmol/L (98-107); CREATININE 0.58 mg/dL (0.7-1.3)
[2018-06-25] MEDS: SODIUM CHLORIDE FLUSH 10ML SYR IVF SCH ×2 (09:07→20:15)
[2018-06-25 13:59] VITALS: BP 122/70
[2018-06-25 18:57] VITALS: BP 122/74
[2018-06-25] MEDS: ENOXAPARIN 40 MG/0.4 ML SQ SCH (20:14)
[2018-06-26 02:46] VITALS: BP 126/83
[2018-06-26] MEDS: CEFAZOLIN PMX 2GM/50ML 50 ML IV SCH ×3 (04:44→20:09)
[2018-06-26 06:05] LABS: BASOPHILS # (AUTO) 0.03 x10^3/uL (0-0.1); BASOPHILS % (AUTO) 0 % (0-1); EOSINOPHILS # (AUTO) 0.44 x10^3/uL (0-0.4); EOSINOPHILS % (AUTO) 8 % (1-7); LYMPHOCYTES # (AUTO) 0.87 x10^3/uL (1-3.4); LYMPHOCYTES % (AUTO) 15 % (22-44); MD NO; MEAN CORPUSCULAR HEMOGLOBIN 27.2 pg (27.5-34.5); MEAN CORPUSCULAR HGB CONC 32.4 g/dL (33.2-36.2); MEAN CORPUSCULAR VOLUME 83.9 fL (81-97); MEAN PLATELET VOLUME 6.7 fL (7.4-10.4); MONOCYTES # (AUTO) 0.72 x10^3/uL (0.2-0.8); MONOCYTES % (AUTO) 12 % (2-9); NEUTROPHILS # (AUTO) 3.76 x10^3/uL (1.8-6.8); NEUTROPHILS % (AUTO) 65 % (42-75); PLATELET COUNT 342 x10^3/uL (130-400); RED BLOOD COUNT 4.74 x10^6/uL (4.38-5.82); RED CELL DISTRIBUTION WIDTH 16.7 % (9.4-14.8)
[2018-06-26 06:12] LABS: CHLORIDE 102 mmol/L (98-107)
[2018-06-26 06:13] LABS: HCT (SEDRATE) 39.7 % (39.2-51.8)
[2018-06-26 06:28] LABS: ALANINE AMINOTRANSFERASE 60 U/L (12-78); ALBUMIN 2.5 g/dL (3.4-5.0); ALKALINE PHOSPHATASE 89 U/L (45-117); ANION GAP 10 mmol/L (5-15); BILIRUBIN,TOTAL 0.3 mg/dL (0.2-1.0); CALCIUM 8.2 mg/dL (8.5-10.1); CREATININE 0.67 mg/dL (0.7-1.3); TOTAL PROTEIN 7.3 g/dL (6.4-8.2)
[2018-06-26 06:57] VITALS: BP 104/66
[2018-06-26] MEDS: SODIUM CHLORIDE FLUSH 10ML SYR IVF SCH ×2 (08:33→20:10)
[2018-06-26] MEDS ORDERED: [UNRECOGNIZED DRUG - CODE] TP (10:58)
[2018-06-26] MEDS ORDERED: CEFA2PIG7 IV (10:58)
[2018-06-26 12:32] VITALS: BP 99/66
[2018-06-26 19:09] VITALS: BP 114/70
[2018-06-26] MEDS: ENOXAPARIN 40 MG/0.4 ML SQ SCH (20:09)
[2018-06-27 02:40] VITALS: BP 107/62
[2018-06-27] MEDS: CEFAZOLIN PMX 2GM/50ML 50 ML IV SCH ×3 (04:45→20:50)
[2018-06-27 07:00] VITALS: BP 117/65
[2018-06-27] MEDS: SODIUM CHLORIDE FLUSH 10ML SYR IVF SCH ×2 (08:00→20:53)
[2018-06-27 14:00] VITALS: BP 115/65
[2018-06-27 19:27] VITALS: BP 122/78
[2018-06-27] MEDS: ENOXAPARIN 40 MG/0.4 ML SQ SCH (20:52)
[2018-06-28 01:13] VITALS: BP 131/79
[2018-06-28] MEDS: CEFAZOLIN PMX 2GM/50ML 50 ML IV SCH ×3 (04:45→19:58)
[2018-06-28 07:25] VITALS: BP 122/72
[2018-06-28] MEDS: SODIUM CHLORIDE FLUSH 10ML SYR IVF SCH ×2 (09:00→19:59)
[2018-06-28] MEDS: PERMETHRIN CRM 5%, 60GM TP SCH ×2 (10:14→11:15)
[2018-06-28 12:27] VITALS: BP 134/92
[2018-06-28 19:56] VITALS: BP 126/78
[2018-06-28] MEDS: ENOXAPARIN 40 MG/0.4 ML SQ SCH (19:58)
[2018-06-28] MEDS: PIPERONYL BUTOXIDE/PYRETHRINS SHAMPOO TP SCH (20:30)
[2018-06-29 02:17] VITALS: BP 127/76
[2018-06-29] MEDS: CEFAZOLIN PMX 2GM/50ML 50 ML IV SCH ×2 (05:29→12:30)
[2018-06-29 07:00] VITALS: BP 133/79
[2018-06-29] MEDS: SODIUM CHLORIDE FLUSH 10ML SYR IVF SCH (09:00)
[2018-06-29 12:55] VITALS: BP 109/65
== END 2018-06-29 14:06 | DRG 638 ==
LOC: ED 16:09 → EDIP 16:41 → 3NE 17:23
PROVIDERS: ADMIT Hospitalist; ATTEND Hospitalist
PROC: 02HV33Z Insertion of Infusion Device into Superior Vena Cava, Percutaneous Approach (ICD-10-PCS; principal; 2018-06-26)
PROC: B548ZZA Ultrasonography of Superior Vena Cava, Guidance (ICD-10-PCS; 2018-06-26)
PROC: B5181ZA Fluoroscopy of Superior Vena Cava using Low Osmolar Contrast, Guidance (ICD-10-PCS; 2018-06-26)
DX: E11.621 Type 2 diabetes mellitus with foot ulcer (principal); L03.115 Cellulitis of right lower limb; E87.1 Hypo-osmolality and hyponatremia; E44.1 Mild protein-calorie malnutrition; M86.8X7 Other osteomyelitis, ankle and foot; L03.116 Cellulitis of left lower limb; B85.0 Pediculosis due to Pediculus humanus capitis; E11.69 Type 2 diabetes mellitus with other specified complication; B85.1 Pediculosis due to Pediculus humanus corporis; B95.61 Methicillin susceptible Staphylococcus aureus infection as the cause of diseases classified elsewhere; L97.519 Non-pressure chronic ulcer of other part of right foot with unspecified severity; I08.3 Combined rheumatic disorders of mitral, aortic and tricuspid valves; N49.2 Inflammatory disorders of scrotum; I10 Essential (primary) hypertension; Z82.49 Family history of ischemic heart disease and other diseases of the circulatory system; F10.20 Alcohol dependence, uncomplicated; E87.6 Hypokalemia; D64.9 Anemia, unspecified; Z68.23 Body mass index [BMI] 23.0-23.9, adult; Z59.0 Homelessness; Z80.9 Family history of malignant neoplasm, unspecified; Z87.891 Personal history of nicotine dependence; Z91.030 Bee allergy status; Z91.018 Allergy to other foods; Z87.11 Personal history of peptic ulcer disease; Z89.411 Acquired absence of right great toe; E11.42 Type 2 diabetes mellitus with diabetic polyneuropathy
CPT/HCPCS: 36415; 36569; 76937; 77001; 80048; 80053; 82040; 83605; 85025; 85651; 86140; 87040; 87077; 87147; 87186; 90656; 93005; 93306; 96365; 96375; 99285; A9585; G0378; J0295; J0690; J1650; J3370; C1751; J7030; J7050

== ENCOUNTER 2018-10-12 01:30 | Emergency (ER) | payer MEDICAID ==
[~2018-10-12] VITALS: Ht 180.3 cm; Wt 71.0 kg
[~2018-10-12 01:30] MED LIST changes: +CEFA2PIG7 IV; +HYDR12.517 PO; -HYDR12.53 PO; +[UNRECOGNIZED DRUG - CODE] TP
[2018-10-12 01:41] VITALS: BP 128/78
[2018-10-12] MEDS ORDERED: DIPHENHYDRAMINE 25 MG CAPSULE PO ONE (02:30)
[2018-10-12] MEDS ORDERED: IBUPROFEN 200 MG TABLET PO ONE (02:30)
[2018-10-12] MEDS ORDERED: IBUPROFEN 200 MG TABLET ONE (02:55)
[2018-10-12] MEDS ORDERED: DIPHENHYDRAMINE 25 MG CAPSULE ONE (02:55)
--- NOTE | 2018-10-12 03:11 | NUR ---
Patient/Caregiver given discharge instructions and they have confirmed that they understand the instructions. Patient ambulatory with steady gait.
== END 2018-10-12 03:12 | disposition home or self-care (01) ==
LOC: ED 03:06
DX: M25.571 Pain in right ankle and joints of right foot (principal); L20.9 Atopic dermatitis, unspecified; L29.9 Pruritus, unspecified
CPT/HCPCS: 99283; Q0163

== ENCOUNTER 2018-10-12 15:27 | Emergency (ER) | payer MEDICAID ==
--- NOTE | 2018-10-12 16:47 | NUR ---
PT TRIAGED DURING DOWNTIME. XRAY BACK, PT TAKEN TO RME8
--- NOTE | 2018-10-12 17:33 | NUR ---
PT GIVEN WALKER, DENISSE WRAP AND BLANKET PACK PROVIDED.
--- NOTE | 2018-10-12 17:51 | NUR ---
PT OFFERED TAXI VOUCHER TO HALFWAY. PT STATES HE'S BEEN KICKED OUT OF HALFWAY. PT ALSO VERBALIZES ANGER THAT WE WON'T ADMIT HIM TO HOSPITAL PT STATES "I SHOULDN'T BE KICKED OUT IN THE MIDDLE OF WINTER". PT STATES HE WANTS TAXI VOUCHER TO [place]. PT INFORMED THIS IS INAPPROPRIATE. PT GIVEN RESOURCES FOR FOLLOW UP. PT DISCHARGED, ABLE TO AMBULATE WITH WALKER.
== END 2018-10-12 17:54 | disposition home or self-care (01) ==
LOC: ED 17:32
DX: M25.561 Pain in right knee (principal); R21 Rash and other nonspecific skin eruption; E11.9 Type 2 diabetes mellitus without complications; I10 Essential (primary) hypertension; Z87.891 Personal history of nicotine dependence
CPT/HCPCS: 99283

== ENCOUNTER 2018-10-21 02:56 | Emergency (ER) | payer SELFPAY ==
[~2018-10-21] VITALS: Ht 170.2 cm; Wt 52.0 kg
--- NOTE | 2018-10-21 03:13 | NUR ---
PT SEEN IN LOBBY. AWAITING ERP. PT DENIES ANY OTHER NEEDS AT THIS TIME WHILE HE WAITS FOR PLAN OF CARE.
--- NOTE | 2018-10-21 03:29 | NUR ---
PT TAKEN TO US AT THIS TIME.
--- NOTE | 2018-10-21 04:02 | NUR ---
PT RETURN FROM RADIOLOGY
[2018-10-21] MEDS ORDERED: CEFTRIAXONE 1,000 MG ONE (04:10)
[2018-10-21 04:19] VITALS: BP 132/80
--- NOTE | 2018-10-21 04:22 | NUR ---
VERY PLEASANT GENTLEMAN, MEDICATED PER ORDER, SEATED IN WC WITH CALL VILCHIS IN REACH, FEET ELEVATED ON CHAIR, CUSHION PLACED UNDER FEET. CALL VILCHIS IN AHND AND AWARE OF USE.
[2018-10-21 04:23] LABS: BASOPHILS # (AUTO) 0.02 x10^3/uL (0-0.1); BASOPHILS % (AUTO) 0 % (0-1); EOSINOPHILS # (AUTO) 1.16 x10^3/uL (0-0.4); EOSINOPHILS % (AUTO) 16 % (1-7); LYMPHOCYTES # (AUTO) 0.99 x10^3/uL (1-3.4); LYMPHOCYTES % (AUTO) 13 % (22-44); MD NO; MEAN CORPUSCULAR HEMOGLOBIN 25.8 pg (27.5-34.5); MEAN CORPUSCULAR HGB CONC 32.7 g/dL (33.2-36.2); MEAN CORPUSCULAR VOLUME 78.8 fL (81-97); MEAN PLATELET VOLUME 6.5 fL (7.4-10.4); MONOCYTES # (AUTO) 0.84 x10^3/uL (0.2-0.8); MONOCYTES % (AUTO) 11 % (2-9); NEUTROPHILS # (AUTO) 4.36 x10^3/uL (1.8-6.8); NEUTROPHILS % (AUTO) 59 % (42-75); PLATELET COUNT 370 x10^3/uL (130-400); RED BLOOD COUNT 4.74 x10^6/uL (4.38-5.82); RED CELL DISTRIBUTION WIDTH 14.7 % (9.4-14.8)
[2018-10-21] MEDS ORDERED: CEFTRIAXONE 1,000 MG IM ONE (04:30)
[2018-10-21 04:31] LABS: ALBUMIN 3.1 g/dL (3.4-5.0); ANION GAP 6 mmol/L (5-15); CALCIUM 8.8 mg/dL (8.5-10.1); CHLORIDE 107 mmol/L (98-107); CREATININE 0.67 mg/dL (0.7-1.3)
--- NOTE | 2018-10-21 04:38 | NUR ---
PT GIVEN FOOD, TWO BED BUGS CAPTURED, DOOR SHUT AND SHEET UNDER DOOR.
--- NOTE | 2018-10-21 04:57 | NUR ---
pt being d/c with d/c summary and scripts. all questions answered. medical billing clerkminal fletcher at bedside for chao bandage application. pt verbalizes understanding of homecare instructions and f/u. pt verbalizes understanding of importance of compliance with antibiotics. pt states he is going to the homeless long-term to sleep and rest. pt denies any other needs pertaining to this visit.
== END 2018-10-21 05:23 | disposition home or self-care (01) ==
LOC: ED 03:16
DX: L03.115 Cellulitis of right lower limb (principal); R60.0 Localized edema; I10 Essential (primary) hypertension; E11.9 Type 2 diabetes mellitus without complications
CPT/HCPCS: 36415; 73560; 80048; 82040; 85025; 93971; 96372; 99284; J0696

== ENCOUNTER 2018-10-28 09:14 | Emergency (ER) | payer SELFPAY ==
--- NOTE | 2018-10-28 10:04 | NUR ---
PT REPORT FROM MIKIE CASTILLO. PT CARE TO BE ASSUMED. PT CURRENTLY DOZING ON BED, HOLDING CALL LIGHT. SIDE RAILS X2 PLACED IN UPRIGHT POSITION.
[2018-10-28 10:58] LABS: BASOPHILS # (AUTO) 0.01 x10^3/uL (0-0.1); BASOPHILS % (AUTO) 0 % (0-1); EOSINOPHILS # (AUTO) 0.98 x10^3/uL (0-0.4); EOSINOPHILS % (AUTO) 15 % (1-7); LYMPHOCYTES # (AUTO) 0.74 x10^3/uL (1-3.4); LYMPHOCYTES % (AUTO) 11 % (22-44); MD NO; MEAN CORPUSCULAR HEMOGLOBIN 24.6 pg (27.5-34.5); MEAN CORPUSCULAR HGB CONC 31.6 g/dL (33.2-36.2); MEAN CORPUSCULAR VOLUME 78.1 fL (81-97); MONOCYTES # (AUTO) 0.69 x10^3/uL (0.2-0.8); MONOCYTES % (AUTO) 10 % (2-9); NEUTROPHILS # (AUTO) 4.25 x10^3/uL (1.8-6.8); NEUTROPHILS % (AUTO) 64 % (42-75); PLATELET COUNT 329 x10^3/uL (130-400); RED BLOOD COUNT 5.11 x10^6/uL (4.38-5.82); RED CELL DISTRIBUTION WIDTH 14.4 % (9.4-14.8)
--- NOTE | 2018-10-28 10:59 | NUR ---
EKG DONE. PT A&OX3, RESP EVEN & UNLABORED, SPEECH CLEAR. MULTIPLE SCABS & SCRATCH PITTS TO UPPER BACK, ANTERIOR TORSO & BILAT ARMS. LE EDEMA & REDNESS BILAT (RT: ANKLE TO KNEE. LT: ANKLE TO MID-NEVES). LT GREAT TOE AMPUTATED. FEET DRY W/ FLAKING SKIN. TOENAILS EXCESSIVELY LONG. PT CURRENTLY ON ISO PRECAUTIONS: WENT THRU [facility] PRIOR TO ADMISSION TO ED ROOM 4. SURGICAL CAP ON HEAD. SIDE RAILS UP X2, CALL LIGHT W/IN REACH.
[2018-10-28] MEDS ORDERED: ACETAMINOPHEN 325 MG TABLET PO ONE (11:00)
--- NOTE | 2018-10-28 11:05 | NUR ---
[facility], PT WAS ADMITTED 1:51 HRS. NO TRIAGE NOTE IN CHART; WILL COMPLETE
[2018-10-28 11:13] LABS: INTERNATIONAL NORMALIZED RATIO 1.1 (0.93-1.1); PROTHROMBIN TIME 11.6 Seconds (9.6-11.5)
--- NOTE | 2018-10-28 11:17 | NUR ---
MED REC: PT REPORTS HE TAKES MEDS, BUT DOESN'T RECALL THE NAMES.
[2018-10-28 11:39] LABS: ANION GAP 8 mmol/L (5-15); CALCIUM 8.7 mg/dL (8.5-10.1); CHLORIDE 106 mmol/L (98-107); CREATININE 0.68 mg/dL (0.7-1.3)
[2018-10-28 13:00] VITALS: BP 129/69
--- NOTE | 2018-10-28 13:00 | NUR ---
PT ASLEEP; AWAKENEND & NOTIFIED OF PENDING DC.
== END 2018-10-28 13:39 | disposition home or self-care (01) ==
LOC: ED 09:29
DX: B35.3 Tinea pedis (principal); R60.0 Localized edema; G47.00 Insomnia, unspecified; Z87.891 Personal history of nicotine dependence; Z72.9 Problem related to lifestyle, unspecified
CPT/HCPCS: 36415; 80048; 83880; 85025; 85610; 85730; 93005; 99284

== ENCOUNTER 2018-11-20 07:40 | Emergency (ER) | payer SELFPAY ==
[~2018-11-20] VITALS: Ht 177.8 cm; Wt 76.0 kg
[2018-11-20 07:40] VITALS: BP 140/73
[~2018-11-20 07:40] MED LIST changes: +SENN-177 PO; -SENN1TAB8 PO
--- NOTE | 2018-11-20 07:40 | NUR ---
[facility] c/o persistent R ankle pain, "recent foot fracture, seen yesterday for same", +bedbugs & poss lice, decon room upon arrival; no interventions CONTACT AND SERVICE CLERKS SUPERVISOR, pt refused VS per EMS; responds approp o tstaff, NAD at rest, comfort measures provided.
--- NOTE | 2018-11-20 08:23 | NUR ---
pt to room 38 from [facility] room
[2018-11-20 09:01] LABS: BASOPHILS # (AUTO) 0.04 x10^3/uL (0-0.1); BASOPHILS % (AUTO) 1 % (0-1); EOSINOPHILS # (AUTO) 0.33 x10^3/uL (0-0.4); EOSINOPHILS % (AUTO) 5 % (1-7); LYMPHOCYTES # (AUTO) 0.63 x10^3/uL (1-3.4); LYMPHOCYTES % (AUTO) 10 % (22-44); MD NO; MEAN CORPUSCULAR HEMOGLOBIN 23.7 pg (27.5-34.5); MEAN CORPUSCULAR HGB CONC 31.7 g/dL (33.2-36.2); MEAN CORPUSCULAR VOLUME 74.8 fL (81-97); MEAN PLATELET VOLUME 6.3 fL (7.4-10.4); MONOCYTES # (AUTO) 0.75 x10^3/uL (0.2-0.8); MONOCYTES % (AUTO) 11 % (2-9); NEUTROPHILS % (AUTO) 74 % (42-75); PLATELET COUNT 385 x10^3/uL (130-400); RED BLOOD COUNT 4.73 x10^6/uL (4.38-5.82); RED CELL DISTRIBUTION WIDTH 15.1 % (9.4-14.8)
[2018-11-20 09:12] LABS: ALBUMIN 2.9 g/dL (3.4-5.0); ANION GAP 6 mmol/L (5-15); CALCIUM 8.2 mg/dL (8.5-10.1); CHLORIDE 104 mmol/L (98-107); CREATININE 0.69 mg/dL (0.7-1.3)
--- NOTE | 2018-11-20 10:00 | NUR ---
pt upright on gurney awake, calm & cooperative, responds approp to staff, NAD, comfort measures provided, call light within reach. pt to US
--- NOTE | 2018-11-20 10:26 | NUR ---
pt returned from US- awaiting results.
[2018-11-20] MEDS ORDERED: BACITRACIN ZINC OINT 500U/GM, 0.9 GM ONE (10:54)
--- NOTE | 2018-11-20 11:21 | NUR ---
Patient given clean clothes & discharge instructions and they have confirmed that they understand the instructions. Patient ambulatory with steady gait via personal crutch use.
== END 2018-11-20 11:12 | disposition home or self-care (01) ==
LOC: ED 08:42
DX: S93.401A Sprain of unspecified ligament of right ankle, initial encounter (principal); D64.9 Anemia, unspecified; L03.115 Cellulitis of right lower limb; E11.9 Type 2 diabetes mellitus without complications; I10 Essential (primary) hypertension; Z87.891 Personal history of nicotine dependence; W00.9XXA Unspecified fall due to ice and snow, initial encounter; Y93.89 Activity, other specified; Y92.89 Other specified places as the place of occurrence of the external cause; Y99.8 Other external cause status
CPT/HCPCS: 36415; 80048; 82040; 85025; 99284

== ENCOUNTER 2018-11-21 17:01 | Emergency (ER) | payer SELFPAY ==
[~2018-11-21] VITALS: Ht 162.6 cm; Wt 73.4 kg
[2018-11-21 17:09] VITALS: BP 154/92
[2018-11-21] MEDS ORDERED: PERMETHRIN CRM 5%, 60GM TP SCH (17:30)
[2018-11-21] MEDS ORDERED: PERMETHRIN CRM 5%, 60GM ONE (17:56)
[2018-11-21 18:08] LABS: BASOPHILS # (AUTO) 0.03 x10^3/uL (0-0.1); BASOPHILS % (AUTO) 1 % (0-1); EOSINOPHILS # (AUTO) 0.57 x10^3/uL (0-0.4); EOSINOPHILS % (AUTO) 9 % (1-7); LYMPHOCYTES # (AUTO) 0.86 x10^3/uL (1-3.4); LYMPHOCYTES % (AUTO) 14 % (22-44); MD NO; MEAN CORPUSCULAR HEMOGLOBIN 24.3 pg (27.5-34.5); MEAN CORPUSCULAR HGB CONC 32.3 g/dL (33.2-36.2); MEAN CORPUSCULAR VOLUME 75.2 fL (81-97); MEAN PLATELET VOLUME 6.4 fL (7.4-10.4); MONOCYTES # (AUTO) 0.68 x10^3/uL (0.2-0.8); MONOCYTES % (AUTO) 11 % (2-9); NEUTROPHILS # (AUTO) 3.98 x10^3/uL (1.8-6.8); NEUTROPHILS % (AUTO) 65 % (42-75); PLATELET COUNT 366 x10^3/uL (130-400); RED BLOOD COUNT 4.42 x10^6/uL (4.38-5.82); RED CELL DISTRIBUTION WIDTH 14.8 % (9.4-14.8)
[2018-11-21 18:19] LABS: ALBUMIN 2.8 g/dL (3.4-5.0); ANION GAP 6 mmol/L (5-15); CALCIUM 8.5 mg/dL (8.5-10.1); CHLORIDE 107 mmol/L (98-107); CREATININE 0.63 mg/dL (0.7-1.3)
== END 2018-11-21 19:32 | disposition home or self-care (01) ==
LOC: ED 19:08
DX: R60.0 Localized edema (principal); B85.0 Pediculosis due to Pediculus humanus capitis; E11.9 Type 2 diabetes mellitus without complications; I10 Essential (primary) hypertension; Z91.030 Bee allergy status; Z91.013 Allergy to seafood; Z72.9 Problem related to lifestyle, unspecified
CPT/HCPCS: 36415; 80048; 82040; 85025; 93005; 99284

== ENCOUNTER 2019-01-09 15:03 | Emergency (ER) | payer MEDICAID ==
[~2019-01-09] VITALS: Ht 167.6 cm; Wt 74.5 kg
[2019-01-09 15:09] VITALS: BP 158/99
--- NOTE | 2019-01-09 15:22 | NUR ---
PT HERE FOR BILATERAL SHOULDER RASH.
--- NOTE | 2019-01-09 15:48 | NUR ---
Patient/Caregiver given discharge instructions and they have confirmed that they understand the instructions. Patient ambulatory with steady gait.
== END 2019-01-09 15:52 | disposition home or self-care (01) ==
LOC: ED 15:30
DX: B85.1 Pediculosis due to Pediculus humanus corporis (principal); Z72.9 Problem related to lifestyle, unspecified; Z59.0 Homelessness
CPT/HCPCS: 99283

== ENCOUNTER 2019-01-12 06:46 | Emergency (ER) | payer MEDICAID ==
[~2019-01-12] VITALS: Ht 177.8 cm; Wt 75.0 kg
[2019-01-12 06:47] VITALS: BP 126/84
[2019-01-12] MEDS ORDERED: IBUPROFEN 800 MG TABLET ONE (07:44)
[2019-01-12] MEDS ORDERED: IBUPROFEN 800 MG TABLET PO ONE (08:00)
== END 2019-01-12 10:23 | disposition home or self-care (01) ==
LOC: ED 08:52
DX: S82.134A Nondisplaced fracture of medial condyle of right tibia, initial encounter for closed fracture (principal); B85.3 Phthiriasis; E11.9 Type 2 diabetes mellitus without complications; I10 Essential (primary) hypertension; W19.XXXA Unspecified fall, initial encounter; Y93.89 Activity, other specified; Y92.410 Unspecified street and highway as the place of occurrence of the external cause; Y99.8 Other external cause status
CPT/HCPCS: 29505; 99283

== ENCOUNTER 2019-01-16 15:16 | Emergency (ER) | payer MEDICAID ==
[~2019-01-16] VITALS: Ht 177.8 cm; Wt 71.3 kg
[2019-01-16 15:19] VITALS: BP 142/79
[2019-01-16] MEDS ORDERED: CEPHALEXIN 500 MG CAPSULE PO ONE (15:30)
[2019-01-16] MEDS ORDERED: SULFAMETH./TRIMETHOPRIM DS 800MG/160MG TABLET PO ONE (15:30)
[2019-01-16] MEDS ORDERED: LIDOCAINE-MPF 1%, 5ML ONE (15:59)
[2019-01-16] MEDS ORDERED: CEPHALEXIN 500 MG CAPSULE ONE (16:00)
[2019-01-16] MEDS ORDERED: SULFAMETH./TRIMETHOPRIM DS 800MG/160MG TABLET ONE (16:00)
[2019-01-16] MEDS ORDERED: LIDOCAINE 1%, 10ML INFIL ONE (16:00)
--- NOTE | 2019-01-16 16:21 | NUR ---
Patient given wound care with discharge instructions and Rx, they have confirmed that they understand the instructions. Patient to DC desk via personal WC.
== END 2019-01-16 16:32 | disposition home or self-care (01) ==
LOC: ED 16:10
DX: L03.011 Cellulitis of right finger (principal); B86 Scabies; I10 Essential (primary) hypertension; E11.9 Type 2 diabetes mellitus without complications
CPT/HCPCS: 10060; 73140; 82962; 99283; J3490

== ENCOUNTER 2019-01-27 09:20 | Emergency (ER) | payer SELFPAY ==
[~2019-01-27] VITALS: Ht 177.8 cm; Wt 75.0 kg
[2019-01-27 09:27] VITALS: BP 116/60
--- NOTE | 2019-01-27 10:54 | NUR ---
Discharge instructions discussed with patient, prescriptions provided with extensive instruction for use. Patient verbalizes understanding.
== END 2019-01-27 10:56 | disposition home or self-care (01) ==
LOC: ED 10:50
DX: B86 Scabies (principal); B85.1 Pediculosis due to Pediculus humanus corporis; Z72.9 Problem related to lifestyle, unspecified; I10 Essential (primary) hypertension; E11.9 Type 2 diabetes mellitus without complications
CPT/HCPCS: 99283

== ENCOUNTER 2019-02-09 04:28 | Emergency (ER) | payer SELFPAY ==
[~2019-02-09] VITALS: Ht 177.8 cm; Wt 77.8 kg
[2019-02-09 04:29] VITALS: BP 133/70
== END 2019-02-09 04:58 | disposition home or self-care (01) ==
LOC: ED 04:57
DX: G89.29 Other chronic pain (principal); B85.1 Pediculosis due to Pediculus humanus corporis; L29.9 Pruritus, unspecified; M79.661 Pain in right lower leg; M79.662 Pain in left lower leg; E11.9 Type 2 diabetes mellitus without complications; I10 Essential (primary) hypertension
CPT/HCPCS: 99283

== ENCOUNTER 2019-02-15 10:11 | Emergency (ER) | payer SELFPAY ==
[~2019-02-15] VITALS: Ht 177.8 cm; Wt 73.0 kg
--- NOTE | 2019-02-15 11:08 | NUR ---
CALLED FOR ROOM, NO ANSWER
--- NOTE | 2019-02-15 11:21 | NUR ---
TAPE DUPLICATOR: PT TO ROOM FROM U/S
--- NOTE | 2019-02-15 12:00 | NUR ---
LATE ENTRY FOR 1140, PT TO ROOM FROM LOBBY VIA WHEELCHAIR, PT TRANSFERED TO [facility]DEP[facility]ENTLY. CHANGED INTO GOWN WITH MIN ASSIST. PT C/O MORGAN ANKLE PAIN STATES HE JUMPED OFF OF AN EMBANKEMENT A FEW DAYS AGO. PT HAS WHAT APPEARS TO BE CHRONIC LE EDEMA AND ERRYTHEMA, ALSO WITH SELF INFLICTED SCATCHES T/O HIS UPPER TORSO, ARMS, THIGHS, BUTTOCK. PT ON BP AND SPO2 MONITORING. DR. GLASS AT BEDSIDE. ASSESSMENT, POC DISCUSSED AND ORDERS REC'D. CALL LIGHT W/I REACH AND WARM BLANKET PROVIDED.
[2019-02-15 12:13] LABS: BASOPHILS # (AUTO) 0.04 x10^3/uL (0-0.1); BASOPHILS % (AUTO) 1 % (0-1); EOSINOPHILS # (AUTO) 0.35 x10^3/uL (0-0.4); EOSINOPHILS % (AUTO) 6 % (1-7); LYMPHOCYTES # (AUTO) 0.75 x10^3/uL (1-3.4); LYMPHOCYTES % (AUTO) 13 % (22-44); MD NO; MEAN CORPUSCULAR HEMOGLOBIN 22.3 pg (27.5-34.5); MEAN CORPUSCULAR VOLUME 72.1 fL (81-97); MEAN PLATELET VOLUME 6.1 fL (7.4-10.4); MONOCYTES # (AUTO) 0.71 x10^3/uL (0.2-0.8); MONOCYTES % (AUTO) 12 % (2-9); NEUTROPHILS % (AUTO) 68 % (42-75); PLATELET COUNT 440 x10^3/uL (130-400); RED CELL DISTRIBUTION WIDTH 19.4 % (9.4-14.8)
[2019-02-15 12:29] LABS: ALANINE AMINOTRANSFERASE 24 U/L (12-78); ALBUMIN 2.8 g/dL (3.4-5.0); ANION GAP 6 mmol/L (5-15); CALCIUM 8.3 mg/dL (8.5-10.1); CHLORIDE 107 mmol/L (98-107); CREATININE 0.65 mg/dL (0.7-1.3)
[2019-02-15 12:32] LABS: ALKALINE PHOSPHATASE 96 U/L (45-117); BILIRUBIN,TOTAL 0.4 mg/dL (0.2-1.0); TOTAL PROTEIN 7.6 g/dL (6.4-8.2)
[2019-02-15 12:45] VITALS: BP 135/79
--- NOTE | 2019-02-15 13:08 | NUR ---
Patient/Caregiver given discharge instructions and they have confirmed that they understand the instructions. Patient ambulatory with steady gait.
== END 2019-02-15 13:11 | disposition home or self-care (01) ==
LOC: ED 12:23
DX: L03.116 Cellulitis of left lower limb (principal); D50.9 Iron deficiency anemia, unspecified; R60.0 Localized edema; I10 Essential (primary) hypertension; Z72.9 Problem related to lifestyle, unspecified
CPT/HCPCS: 36415; 80053; 85025; 99284

== ENCOUNTER 2019-03-01 14:42 | Inpatient (IN) | payer MEDICAID, OTHER ==
[~2019-03-01] VITALS: Ht 177.8 cm; Wt 68.9 kg
[~2019-03-01 14:42] MED LIST changes: +VANCOMYCIN 1,500 MG in SODIUM CHLORIDE 0.9% 250 ML IV SCH
--- NOTE | 2019-03-01 14:52 | NUR ---
BIB [facility] FOR C/O BLUE SWELLING,FLAKINESS X3 WKS. PT STATES HE WAS SEEN HERE FOR SAME 1 WK AGO. PT DENIES ANY HX DM/CHF. DOES NOT TAKE ANY MEDICATIONS. PT RESTING ON GURNEY. GIANAN. ERP DR. CUADRA NOTIFIED OF PT TEMP AT 101.8
[2019-03-01] MEDS ORDERED: PHARMACOKINETIC CONSULTATION MC ONE ×2 (15:00→18:30)
[2019-03-01] MEDS ORDERED: VANCOMYCIN PER PHARMACY MC PRN ×2 (15:00→18:00)
[2019-03-01] MEDS ORDERED: VANCOMYCIN 1,500 MG in SODIUM CHLORIDE 0.9% 250 ML IV ONE (15:00)
[2019-03-01] MEDS ORDERED: KETOROLAC 30 MG/1 ML ONE (15:00)
[2019-03-01] MEDS ORDERED: CEFAZOLIN PMX 1GM/50ML 50 ML IV ONE (15:00)
[2019-03-01] MEDS ORDERED: KETOROLAC 30 MG/1 ML IVPush ONE (15:00)
[2019-03-01] MEDS ORDERED: ACETAMINOPHEN 500 MG TABLET PO ONE (15:00)
[2019-03-01] MEDS ORDERED: CEFAZOLIN PMX 1GM/50ML 50 ML ONE (15:01)
[2019-03-01] MEDS ORDERED: ACETAMINOPHEN 500 MG TABLET ONE (15:01)
--- NOTE | 2019-03-01 15:15 | NUR ---
BC X 2 HAVE BEEN DRAWN. IV ANTX INITIATED.
[2019-03-01 15:27] LABS: MEAN CORPUSCULAR HEMOGLOBIN 22.3 pg (27.5-34.5); MEAN CORPUSCULAR HGB CONC 31.6 g/dL (33.2-36.2); MEAN CORPUSCULAR VOLUME 70.6 fL (81-97); MEAN PLATELET VOLUME 6.5 fL (7.4-10.4); PLATELET COUNT 424 x10^3/uL (130-400); RED BLOOD COUNT 4.06 x10^6/uL (4.38-5.82); RED CELL DISTRIBUTION WIDTH 18.1 % (9.4-14.8)
[2019-03-01 15:36] LABS: INTERNATIONAL NORMALIZED RATIO 1.15 (0.93-1.1)
[2019-03-01 15:39] LABS: ALANINE AMINOTRANSFERASE 20 U/L (12-78); ALBUMIN 2.4 g/dL (3.4-5.0); ANION GAP 9 mmol/L (5-15); CALCIUM 7.9 mg/dL (8.5-10.1); CHLORIDE 95 mmol/L (98-107); CREATININE 0.75 mg/dL (0.7-1.3)
[2019-03-01 15:41] LABS: ALKALINE PHOSPHATASE 89 U/L (45-117); TOTAL PROTEIN 7.3 g/dL (6.4-8.2)
--- NOTE | 2019-03-01 15:48 | NUR ---
ERP NOTIFIED OF PT CXR.
--- NOTE | 2019-03-01 16:00 | NUR ---
PINK SEPSIS SHEET COMPLETED. PT DOES NOT MEET CRITERIA.
[2019-03-01] MEDS ORDERED: OMNIPAQUE 350 MG/ML, 100ML BOTTLE ONE (16:15)
[2019-03-01 16:19] LABS: BASOPHILS # (AUTO) 0.02 x10^3/uL (0-0.1); BASOPHILS % (AUTO) 0 % (0-1); EOSINOPHILS % (AUTO) 0 % (1-7); LYMPHOCYTES # (AUTO) 0.49 x10^3/uL (1-3.4); LYMPHOCYTES % (AUTO) 4 % (22-44); MD SCAN; MONOCYTES % (AUTO) 8 % (2-9); NEUTROPHILS # (AUTO) 11.66 x10^3/uL (1.8-6.8); NEUTROPHILS % (AUTO) 88 % (42-75)
--- NOTE | 2019-03-01 16:20 | NUR ---
PT RESTING ON GURNEY. NADN. LINDER.
[2019-03-01] MEDS ORDERED: CEFTRIAXONE PMX 1GM/50ML 50 ML IV ONE (17:00)
[2019-03-01] MEDS ORDERED: CEFTRIAXONE PMX 1GM/50ML 50 ML ONE (17:04)
--- NOTE | 2019-03-01 17:21 | NUR ---
REPORT GIVEN TO ÁLVARO, CITLALI RN. ALL QUESTIONS ANSWERED. AWAITING PT TRANSPORT.
[2019-03-01] MEDS: ENOXAPARIN 40 MG/0.4 ML SQ SCH (18:00)
[2019-03-01] MEDS ORDERED: ACETAMINOPHEN 325 MG TABLET PO PRN (18:00)
[2019-03-01 18:21] LABS: % IRON SATURATION 3 % (20-55); IRON LEVEL 11 mcg/dL (65-175); TOTAL IRON BINDING CAPACITY 341 mcg/dL (250-450)
[2019-03-01] MEDS ORDERED: PHARMACOKINETIC MONITORING MC PRN (18:30)
[2019-03-01] MEDS ORDERED: GADOBUTROL 7.5 MMOL/7.5 ML PFS ONE (19:06)
[2019-03-01] MEDS: SODIUM CHLORIDE 0.9% 1,000 ML IV SCH (20:13)
[2019-03-01 20:33] LABS: MICROSCOPIC NOT IND
[2019-03-01 20:34] LABS: CULTURE INDICATED? NO
[2019-03-01 20:44] LABS: AMPHETAMINE SCREEN, URINE Negative (Negative); BARBITURATE SCREEN, URINE Negative (Negative); BENZODIAZEPINE SCREEN, URINE Negative (Negative); CANNABINOID SCREEN, URINE Negative (Negative); COCAINE SCREEN, URINE Negative (Negative); METHADONE SCREEN, URINE Negative (Negative); OPIATE SCREEN, URINE Negative (Negative)
[2019-03-01 22:00] VITALS: BP 128/75
[2019-03-02 01:16] VITALS: BP 132/82
[2019-03-02] MEDS: SODIUM CHLORIDE 0.9% 1,000 ML IV SCH ×2 (03:50→16:26)
[2019-03-02] MEDS: VANCOMYCIN 1,500 MG in SODIUM CHLORIDE 0.9% 250 ML IV SCH ×2 (04:08→16:27)
[2019-03-02 06:06] LABS: BASOPHILS # (AUTO) 0.02 x10^3/uL (0-0.1); BASOPHILS % (AUTO) 0 % (0-1); EOSINOPHILS # (AUTO) 0.08 x10^3/uL (0-0.4); EOSINOPHILS % (AUTO) 1 % (1-7); LYMPHOCYTES # (AUTO) 0.41 x10^3/uL (1-3.4); LYMPHOCYTES % (AUTO) 5 % (22-44); MD NO; MEAN CORPUSCULAR HEMOGLOBIN 22.2 pg (27.5-34.5); MEAN CORPUSCULAR HGB CONC 31.2 g/dL (33.2-36.2); MEAN CORPUSCULAR VOLUME 71.2 fL (81-97); MEAN PLATELET VOLUME 6.8 fL (7.4-10.4); MONOCYTES # (AUTO) 0.77 x10^3/uL (0.2-0.8); MONOCYTES % (AUTO) 10 % (2-9); NEUTROPHILS # (AUTO) 6.52 x10^3/uL (1.8-6.8); NEUTROPHILS % (AUTO) 84 % (42-75); PLATELET COUNT 370 x10^3/uL (130-400); RED BLOOD COUNT 4.13 x10^6/uL (4.38-5.82); RED CELL DISTRIBUTION WIDTH 17.6 % (9.4-14.8)
[2019-03-02 06:17] LABS: ANION GAP 11 mmol/L (5-15); CALCIUM 7.7 mg/dL (8.5-10.1); CHLORIDE 103 mmol/L (98-107)
[2019-03-02 06:31] LABS: ALANINE AMINOTRANSFERASE 19 U/L (12-78); ALKALINE PHOSPHATASE 80 U/L (45-117); BILIRUBIN,TOTAL 0.9 mg/dL (0.2-1.0); CREATININE 0.57 mg/dL (0.7-1.3); TOTAL PROTEIN 6.4 g/dL (6.4-8.2)
[2019-03-02 06:58] VITALS: BP 116/67
[2019-03-02 14:40] VITALS: BP 120/66
[2019-03-02 15:28] LABS: ABSOLUTE RETICS # 0.048 x10^6/uL (0.5-1.5); RED BLOOD COUNT 4.01 x10^6/uL (4.38-5.82); RETICULOCYTE COUNT % 1.19 % (0.5-1.5)
[2019-03-02 15:46] LABS: HCT (SEDRATE) 29.4 % (39.2-51.8)
[2019-03-02] MEDS: ENOXAPARIN 40 MG/0.4 ML SQ SCH (17:59)
[2019-03-02] MEDS: CEFTRIAXONE PMX 2GM/50ML 50 ML IV SCH (18:28)
[2019-03-02 18:59] VITALS: BP 123/70
[2019-03-02] MEDS: THIAMINE 100MG TABLET PO SCH (19:37)
[2019-03-03 00:58] VITALS: BP 125/72
[2019-03-03] MEDS: VANCOMYCIN 1,500 MG in SODIUM CHLORIDE 0.9% 250 ML IV SCH ×2 (04:23→16:29)
[2019-03-03 05:25] LABS: BASOPHILS % (AUTO) 0 % (0-1); EOSINOPHILS # (AUTO) 0.19 x10^3/uL (0-0.4); EOSINOPHILS % (AUTO) 3 % (1-7); LYMPHOCYTES # (AUTO) 0.69 x10^3/uL (1-3.4); LYMPHOCYTES % (AUTO) 12 % (22-44); MD NO; MEAN CORPUSCULAR HEMOGLOBIN 22.7 pg (27.5-34.5); MEAN CORPUSCULAR HGB CONC 31.4 g/dL (33.2-36.2); MEAN CORPUSCULAR VOLUME 72.2 fL (81-97); MEAN PLATELET VOLUME 6.9 fL (7.4-10.4); MONOCYTES # (AUTO) 0.62 x10^3/uL (0.2-0.8); MONOCYTES % (AUTO) 10 % (2-9); NEUTROPHILS # (AUTO) 4.54 x10^3/uL (1.8-6.8); NEUTROPHILS % (AUTO) 75 % (42-75); PLATELET COUNT 455 x10^3/uL (130-400); RED BLOOD COUNT 4.47 x10^6/uL (4.38-5.82); RED CELL DISTRIBUTION WIDTH 17.5 % (9.4-14.8)
[2019-03-03 05:31] LABS: ANION GAP 8 mmol/L (5-15); CHLORIDE 103 mmol/L (98-107)
[2019-03-03 05:32] LABS: CREATININE 0.56 mg/dL (0.7-1.3)
[2019-03-03 07:11] VITALS: BP 131/75
[2019-03-03] MEDS: POTASSIUM CHLORIDE 20 MEQ TAB.ER.PRT PO SCH (08:38)
[2019-03-03] MEDS: MULTIVITAMINS WITH IRON TABLET PO SCH (08:38)
[2019-03-03] MEDS: THIAMINE 100MG TABLET PO SCH ×2 (08:38→20:22)
[2019-03-03] MEDS ORDERED: DIPHENHYDRAMINE/ZINC CRM 2%, 30GM TP PRN (10:30)
[2019-03-03 12:57] VITALS: BP 142/79
[2019-03-03] MEDS: ENOXAPARIN 40 MG/0.4 ML SQ SCH (17:03)
[2019-03-03] MEDS: CEFTRIAXONE PMX 2GM/50ML 50 ML IV SCH (18:19)
[2019-03-03 18:52] VITALS: BP 121/69
[2019-03-04 00:35] VITALS: BP 128/70
[2019-03-04 03:43] LABS: BASOPHILS # (AUTO) 0.02 x10^3/uL (0-0.1); BASOPHILS % (AUTO) 0 % (0-1); EOSINOPHILS # (AUTO) 0.35 x10^3/uL (0-0.4); EOSINOPHILS % (AUTO) 6 % (1-7); LYMPHOCYTES # (AUTO) 0.83 x10^3/uL (1-3.4); LYMPHOCYTES % (AUTO) 13 % (22-44); MD NO; MEAN CORPUSCULAR HEMOGLOBIN 21.9 pg (27.5-34.5); MEAN CORPUSCULAR HGB CONC 30.6 g/dL (33.2-36.2); MEAN CORPUSCULAR VOLUME 71.5 fL (81-97); MEAN PLATELET VOLUME 6.5 fL (7.4-10.4); MONOCYTES # (AUTO) 0.73 x10^3/uL (0.2-0.8); MONOCYTES % (AUTO) 12 % (2-9); NEUTROPHILS # (AUTO) 4.43 x10^3/uL (1.8-6.8); NEUTROPHILS % (AUTO) 70 % (42-75); PLATELET COUNT 464 x10^3/uL (130-400); RED BLOOD COUNT 4.47 x10^6/uL (4.38-5.82); RED CELL DISTRIBUTION WIDTH 17.7 % (9.4-14.8)
[2019-03-04 03:51] LABS: ANION GAP 7 mmol/L (5-15); CALCIUM 8.2 mg/dL (8.5-10.1); CHLORIDE 103 mmol/L (98-107)
[2019-03-04 03:53] LABS: CREATININE 0.59 mg/dL (0.7-1.3); VANCOMYCIN,TROUGH 9.3 mcg/mL (5.0-10.0)
[2019-03-04] MEDS: VANCOMYCIN 1,500 MG in SODIUM CHLORIDE 0.9% 250 ML IV SCH ×2 (04:03→16:32)
[2019-03-04 07:41] VITALS: BP 121/70
[2019-03-04] MEDS: MULTIVITAMINS WITH IRON TABLET PO SCH (09:47)
[2019-03-04] MEDS: POTASSIUM CHLORIDE 20 MEQ TAB.ER.PRT PO SCH (09:47)
[2019-03-04] MEDS: THIAMINE 100MG TABLET PO SCH ×2 (09:47→20:48)
[2019-03-04 11:58] VITALS: BP 125/72
[2019-03-04] MEDS: ENOXAPARIN 40 MG/0.4 ML SQ SCH (15:36)
[2019-03-04] MEDS: CEFTRIAXONE PMX 2GM/50ML 50 ML IV SCH (18:19)
[2019-03-04 19:04] VITALS: BP 105/68
[2019-03-05 01:32] VITALS: BP 126/78
[2019-03-05] MEDS: VANCOMYCIN 1,500 MG in SODIUM CHLORIDE 0.9% 250 ML IV SCH ×2 (03:02→15:44)
[2019-03-05 07:10] VITALS: BP 131/77
[2019-03-05] MEDS: MULTIVITAMINS WITH IRON TABLET PO SCH (08:16)
[2019-03-05] MEDS: THIAMINE 100MG TABLET PO SCH ×2 (08:16→23:09)
[2019-03-05] MEDS: POTASSIUM CHLORIDE 20 MEQ TAB.ER.PRT PO SCH (08:16)
[2019-03-05] MEDS: AMPICILLIN/SULBACTAM 3 GM in SODIUM CHLORIDE 0.9% 100 ML IV SCH ×2 (12:36→17:48)
[2019-03-05 13:42] VITALS: BP 126/71
[2019-03-05] MEDS: ENOXAPARIN 40 MG/0.4 ML SQ SCH (17:48)
[2019-03-05 19:46] VITALS: BP 128/72
[2019-03-06] MEDS: AMPICILLIN/SULBACTAM 3 GM in SODIUM CHLORIDE 0.9% 100 ML IV SCH ×4 (00:04→18:14)
[2019-03-06 01:15] VITALS: BP 102/68
[2019-03-06] MEDS: VANCOMYCIN 1,500 MG in SODIUM CHLORIDE 0.9% 250 ML IV SCH (03:27)
[2019-03-06 05:06] LABS: BASOPHILS # (AUTO) 0.12 x10^3/uL (0-0.1); BASOPHILS % (AUTO) 2 % (0-1); EOSINOPHILS % (AUTO) 10 % (1-7); LYMPHOCYTES % (AUTO) 17 % (22-44); MD NO; MEAN CORPUSCULAR HEMOGLOBIN 22.3 pg (27.5-34.5); MEAN CORPUSCULAR HGB CONC 31.1 g/dL (33.2-36.2); MEAN CORPUSCULAR VOLUME 71.8 fL (81-97); MEAN PLATELET VOLUME 6.7 fL (7.4-10.4); MONOCYTES # (AUTO) 0.71 x10^3/uL (0.2-0.8); MONOCYTES % (AUTO) 10 % (2-9); NEUTROPHILS # (AUTO) 4.34 x10^3/uL (1.8-6.8); NEUTROPHILS % (AUTO) 61 % (42-75); PLATELET COUNT 531 x10^3/uL (130-400); RED BLOOD COUNT 4.79 x10^6/uL (4.38-5.82)
[2019-03-06 05:20] LABS: ALANINE AMINOTRANSFERASE 43 U/L (12-78); ALBUMIN 2.4 g/dL (3.4-5.0); ANION GAP 5 mmol/L (5-15); CALCIUM 8.7 mg/dL (8.5-10.1); CHLORIDE 104 mmol/L (98-107); CREATININE 0.71 mg/dL (0.7-1.3)
[2019-03-06 05:22] LABS: ALKALINE PHOSPHATASE 77 U/L (45-117); BILIRUBIN,TOTAL 0.2 mg/dL (0.2-1.0); TOTAL PROTEIN 7.4 g/dL (6.4-8.2)
[2019-03-06 06:50] VITALS: BP 113/75
[2019-03-06 09:12] LABS: OCCULT BLOOD NEGATIVE (NEGATIVE)
[2019-03-06] MEDS: THIAMINE 100MG TABLET PO SCH ×2 (09:39→23:12)
[2019-03-06] MEDS: MULTIVITAMINS WITH IRON TABLET PO SCH (09:39)
[2019-03-06] MEDS: POTASSIUM CHLORIDE 20 MEQ TAB.ER.PRT PO SCH (09:39)
[2019-03-06 12:38] VITALS: BP 127/70
[2019-03-06] MEDS: LINEZOLID 600 MG TABLET PO SCH (16:54)
[2019-03-06] MEDS: ENOXAPARIN 40 MG/0.4 ML SQ SCH (18:15)
[2019-03-06 18:55] VITALS: BP 132/76
[2019-03-07] MEDS: AMPICILLIN/SULBACTAM 3 GM in SODIUM CHLORIDE 0.9% 100 ML IV SCH ×2 (00:17→05:48)
[2019-03-07 03:08] VITALS: BP 119/68
[2019-03-07] MEDS: LINEZOLID 600 MG TABLET PO SCH (05:45)
[2019-03-07 06:29] VITALS: BP 130/83
[2019-03-07] MEDS: POTASSIUM CHLORIDE 20 MEQ TAB.ER.PRT PO SCH (08:39)
[2019-03-07] MEDS: MULTIVITAMINS WITH IRON TABLET PO SCH (08:39)
[2019-03-07] MEDS: THIAMINE 100MG TABLET PO SCH ×2 (08:39→20:34)
[2019-03-07] MEDS: CEFTAROLINE 600 MG in SODIUM CHLORIDE 0.9% 100 ML IV SCH (13:12)
[2019-03-07 14:15] VITALS: BP 111/66
[2019-03-07] MEDS: CARVEDILOL 3.125 MG TABLET PO SCH (18:00)
[2019-03-07] MEDS: ENOXAPARIN 40 MG/0.4 ML SQ SCH (18:00)
[2019-03-07 19:35] VITALS: BP 102/64
[2019-03-08] MEDS: CEFTAROLINE 600 MG in SODIUM CHLORIDE 0.9% 100 ML IV SCH ×2 (00:10→12:19)
[2019-03-08 02:06] VITALS: BP 121/75
[2019-03-08 05:11] VITALS: BP 120/82
[2019-03-08] MEDS: CARVEDILOL 3.125 MG TABLET PO SCH ×2 (05:14→17:41)
[2019-03-08] MEDS: ASPIRIN 81 MG TABLET EC PO SCH (05:14)
[2019-03-08 09:09] VITALS: BP 115/76
[2019-03-08] MEDS: MULTIVITAMINS WITH IRON TABLET PO SCH (09:37)
[2019-03-08] MEDS: THIAMINE 100MG TABLET PO SCH ×2 (09:37→20:17)
[2019-03-08] MEDS: LISINOPRIL 5 MG TABLET PO SCH (09:37)
[2019-03-08 13:15] VITALS: BP 113/70
[2019-03-08] MEDS: ENOXAPARIN 40 MG/0.4 ML SQ SCH (17:41)
[2019-03-08 19:12] VITALS: BP 114/68
[2019-03-09] MEDS: CEFTAROLINE 600 MG in SODIUM CHLORIDE 0.9% 100 ML IV SCH ×2 (00:26→12:42)
[2019-03-09 00:29] VITALS: BP 114/73
[2019-03-09 05:20] VITALS: BP 106/68
[2019-03-09] MEDS: ASPIRIN 81 MG TABLET EC PO SCH (05:22)
[2019-03-09] MEDS: CARVEDILOL 3.125 MG TABLET PO SCH ×2 (05:23→16:59)
[2019-03-09 09:00] VITALS: BP 112/71
[2019-03-09] MEDS: LISINOPRIL 5 MG TABLET PO SCH (09:00)
[2019-03-09] MEDS: THIAMINE 100MG TABLET PO SCH ×2 (10:23→20:58)
[2019-03-09] MEDS: MULTIVITAMINS WITH IRON TABLET PO SCH (10:23)
[2019-03-09 13:22] VITALS: BP 146/71
[2019-03-09] MEDS: ENOXAPARIN 40 MG/0.4 ML SQ SCH (16:59)
[2019-03-09 19:20] VITALS: BP 112/73
[2019-03-10] MEDS: CEFTAROLINE 600 MG in SODIUM CHLORIDE 0.9% 100 ML IV SCH ×3 (00:44→23:59)
[2019-03-10 01:09] VITALS: BP 134/75
[2019-03-10] MEDS: ASPIRIN 81 MG TABLET EC PO SCH (05:54)
[2019-03-10] MEDS: CARVEDILOL 3.125 MG TABLET PO SCH ×2 (05:54→17:29)
[2019-03-10 07:59] VITALS: BP 122/76
[2019-03-10] MEDS: THIAMINE 100MG TABLET PO SCH ×2 (08:00→20:50)
[2019-03-10] MEDS: MULTIVITAMINS WITH IRON TABLET PO SCH (08:00)
[2019-03-10] MEDS: LISINOPRIL 5 MG TABLET PO SCH (08:00)
[2019-03-10 13:50] VITALS: BP 104/57
[2019-03-10] MEDS: ENOXAPARIN 40 MG/0.4 ML SQ SCH (17:29)
[2019-03-10 19:59] VITALS: BP 102/61
[2019-03-11 00:10] VITALS: BP 100/68
[2019-03-11 03:35] LABS: CREATININE 0.81 mg/dL (0.7-1.3)
[2019-03-11 07:35] VITALS: BP 104/72
[2019-03-11] MEDS: THIAMINE 100MG TABLET PO SCH ×2 (08:31→20:36)
[2019-03-11] MEDS: ASPIRIN 81 MG TABLET EC PO SCH (08:31)
[2019-03-11] MEDS: MULTIVITAMINS WITH IRON TABLET PO SCH (08:32)
[2019-03-11] MEDS: CARVEDILOL 3.125 MG TABLET PO SCH ×2 (08:32→17:52)
[2019-03-11] MEDS: LISINOPRIL 5 MG TABLET PO SCH (08:33)
[2019-03-11] MEDS: CEFTAROLINE 600 MG in SODIUM CHLORIDE 0.9% 100 ML IV SCH (13:26)
[2019-03-11 14:41] VITALS: BP 101/61
[2019-03-11] MEDS: ENOXAPARIN 40 MG/0.4 ML SQ SCH (17:52)
[2019-03-11 19:52] VITALS: BP 107/65
[2019-03-12 00:22] VITALS: BP 112/70
[2019-03-12] MEDS: CEFTAROLINE 600 MG in SODIUM CHLORIDE 0.9% 100 ML IV SCH ×2 (00:23→13:26)
[2019-03-12] MEDS: ASPIRIN 81 MG TABLET EC PO SCH (05:18)
[2019-03-12] MEDS: CARVEDILOL 3.125 MG TABLET PO SCH ×2 (05:18→19:23)
[2019-03-12 05:24] LABS: HCT (SEDRATE) 32.7 % (39.2-51.8)
[2019-03-12 05:35] LABS: BASOPHILS # (AUTO) 0.07 x10^3/uL (0-0.1); BASOPHILS % (AUTO) 1 % (0-1); EOSINOPHILS # (AUTO) 0.42 x10^3/uL (0-0.4); EOSINOPHILS % (AUTO) 7 % (1-7); LYMPHOCYTES % (AUTO) 18 % (22-44); MD NO; MEAN CORPUSCULAR HEMOGLOBIN 22.7 pg (27.5-34.5); MEAN CORPUSCULAR HGB CONC 31.5 g/dL (33.2-36.2); MEAN PLATELET VOLUME 6.5 fL (7.4-10.4); MONOCYTES # (AUTO) 0.58 x10^3/uL (0.2-0.8); MONOCYTES % (AUTO) 9 % (2-9); NEUTROPHILS # (AUTO) 4.02 x10^3/uL (1.8-6.8); NEUTROPHILS % (AUTO) 65 % (42-75); PLATELET COUNT 573 x10^3/uL (130-400); RED BLOOD COUNT 4.54 x10^6/uL (4.38-5.82); RED CELL DISTRIBUTION WIDTH 17.7 % (9.4-14.8)
[2019-03-12 05:43] LABS: ALANINE AMINOTRANSFERASE 43 U/L (12-78); ALBUMIN 2.7 g/dL (3.4-5.0); ANION GAP 7 mmol/L (5-15); C-REACTIVE PROTEIN, QUANT 0.23 mg/dL (0.02-0.49); CALCIUM 8.6 mg/dL (8.5-10.1); CHLORIDE 105 mmol/L (98-107); CREATININE 0.73 mg/dL (0.7-1.3)
[2019-03-12 05:45] LABS: ALKALINE PHOSPHATASE 81 U/L (45-117); BILIRUBIN,TOTAL 0.2 mg/dL (0.2-1.0); TOTAL PROTEIN 7.3 g/dL (6.4-8.2)
[2019-03-12 06:30] VITALS: BP 96/65
[2019-03-12] MEDS: MULTIVITAMINS WITH IRON TABLET PO SCH (09:30)
[2019-03-12] MEDS: LISINOPRIL 5 MG TABLET PO SCH (09:30)
[2019-03-12] MEDS: THIAMINE 100MG TABLET PO SCH ×2 (09:30→21:09)
[2019-03-12 09:31] VITALS: BP 102/68
[2019-03-12 12:09] VITALS: BP 96/55
[2019-03-12] MEDS: ENOXAPARIN 40 MG/0.4 ML SQ SCH (19:23)
[2019-03-12 20:13] VITALS: BP 104/62
[2019-03-13 01:38] VITALS: BP 97/58
[2019-03-13] MEDS: CEFTAROLINE 600 MG in SODIUM CHLORIDE 0.9% 100 ML IV SCH ×2 (01:39→14:07)
[2019-03-13] MEDS: CARVEDILOL 3.125 MG TABLET PO SCH ×2 (05:56→17:35)
[2019-03-13] MEDS: ASPIRIN 81 MG TABLET EC PO SCH (05:56)
[2019-03-13 06:58] VITALS: BP 107/72
[2019-03-13] MEDS: MULTIVITAMINS WITH IRON TABLET PO SCH (08:14)
[2019-03-13] MEDS: THIAMINE 100MG TABLET PO SCH ×2 (08:14→21:01)
[2019-03-13] MEDS: LISINOPRIL 5 MG TABLET PO SCH (08:14)
[2019-03-13 12:17] VITALS: BP 101/65
[2019-03-13] MEDS: ENOXAPARIN 40 MG/0.4 ML SQ SCH (17:35)
[2019-03-13 18:53] VITALS: BP 106/69
[2019-03-14 01:17] VITALS: BP 98/62
[2019-03-14] MEDS: CEFTAROLINE 600 MG in SODIUM CHLORIDE 0.9% 100 ML IV SCH ×2 (01:34→14:15)
[2019-03-14 05:52] VITALS: BP 110/70
[2019-03-14] MEDS: ASPIRIN 81 MG TABLET EC PO SCH (05:56)
[2019-03-14] MEDS: CARVEDILOL 3.125 MG TABLET PO SCH ×2 (05:56→20:45)
[2019-03-14 07:27] VITALS: BP 111/70
[2019-03-14] MEDS: THIAMINE 100MG TABLET PO SCH ×2 (10:42→20:45)
[2019-03-14] MEDS: LISINOPRIL 5 MG TABLET PO SCH (10:42)
[2019-03-14] MEDS: MULTIVITAMINS WITH IRON TABLET PO SCH (10:42)
[2019-03-14 12:47] VITALS: BP 111/71
[2019-03-14 19:41] VITALS: BP 108/64
[2019-03-14] MEDS: ENOXAPARIN 40 MG/0.4 ML SQ SCH (20:44)
[2019-03-15] MEDS: CEFTAROLINE 600 MG in SODIUM CHLORIDE 0.9% 100 ML IV SCH (01:30)
[2019-03-15 01:48] VITALS: BP 98/57
[2019-03-15] MEDS: CARVEDILOL 3.125 MG TABLET PO SCH (05:34)
[2019-03-15] MEDS: ASPIRIN 81 MG TABLET EC PO SCH (05:34)
[2019-03-15 06:51] VITALS: BP 102/71
[2019-03-15] MEDS: MULTIVITAMINS WITH IRON TABLET PO SCH (09:01)
[2019-03-15] MEDS: LISINOPRIL 5 MG TABLET PO SCH (09:01)
[2019-03-15] MEDS: THIAMINE 100MG TABLET PO SCH (09:01)
[2019-03-15] MEDS ORDERED: MULT1TAB81 PO (11:30)
[2019-03-15] MEDS ORDERED: CARV3.1212 PO (11:30)
[2019-03-15] MEDS ORDERED: LISI5TAB7 PO (11:30)
[2019-03-15] MEDS ORDERED: THIA100T67 PO (11:30)
[2019-03-15] MEDS ORDERED: CEFT600V IV (11:30)
[2019-03-15] MEDS ORDERED: FOLI-17 PO (11:39)
[2019-03-15] MEDS ORDERED: MAGN400T26 PO (11:39)
== END 2019-03-15 14:10 | DRG 871 ==
LOC: ED 15:01 → EDIP 16:56 → 3NE 17:34
PROVIDERS: ADMIT Internal Medicine; ATTEND Internal Medicine
PROC: 02HV33Z Insertion of Infusion Device into Superior Vena Cava, Percutaneous Approach (ICD-10-PCS; principal; 2019-03-09)
PROC: B5181ZA Fluoroscopy of Superior Vena Cava using Low Osmolar Contrast, Guidance (ICD-10-PCS; 2019-03-09)
PROC: B548ZZA Ultrasonography of Superior Vena Cava, Guidance (ICD-10-PCS; 2019-03-09)
DX: A41.9 Sepsis, unspecified organism (principal); E43 Unspecified severe protein-calorie malnutrition; J18.1 Lobar pneumonia, unspecified organism; E51.9 Thiamine deficiency, unspecified; E87.1 Hypo-osmolality and hyponatremia; I50.22 Chronic systolic (congestive) heart failure; M86.172 Other acute osteomyelitis, left ankle and foot; M48.56XA Collapsed vertebra, not elsewhere classified, lumbar region, initial encounter for fracture; D50.9 Iron deficiency anemia, unspecified; Z68.21 Body mass index [BMI] 21.0-21.9, adult; Z91.030 Bee allergy status; Z91.013 Allergy to seafood; F10.20 Alcohol dependence, uncomplicated; G60.8 Other hereditary and idiopathic neuropathies; G89.29 Other chronic pain; M54.9 Dorsalgia, unspecified; I11.0 Hypertensive heart disease with heart failure; K27.9 Peptic ulcer, site unspecified, unspecified as acute or chronic, without hemorrhage or perforation; Z59.0 Homelessness; Z86.72 Personal history of thrombophlebitis; Z87.11 Personal history of peptic ulcer disease; Z87.891 Personal history of nicotine dependence; Z91.14 Patient's other noncompliance with medication regimen; L03.032 Cellulitis of left toe
CPT/HCPCS: 36415; 36573; 70450; 71045; 71260; 74177; 78315; 80048; 80053; 80202; 80307; 81003; 82272; 82565; 82728; 83540; 83550; 83605; 83735; 84100; 84145; 84295; 84443; 85025; 85045; 85610; 85651; 85730; 86140; 86480; 87015; 87040; 87070; 87081; 87116; 87205; 87206; 93005; 93306; 93922; 93970; 96365; 96367; 96375; A9585; G0378; J0295; J0690; J0696; J0712; J1650; J1885; J3370; Q9967; A9503; C1751; C9898; J7030; J7050

== ENCOUNTER 2019-07-19 12:01 | Emergency (ER) | payer MEDICAID, OTHER ==
[~2019-07-19 12:01] MED LIST changes: +CARV3.1212 PO; +CEFT600V IV; +LISI5TAB7 PO; +MAGN400T26 PO; +MULT1TAB81 PO; -VANCOMYCIN 1,500 MG in SODIUM CHLORIDE 0.9% 250 ML IV SCH
[2019-07-19 12:17] VITALS: BP 126/76
--- NOTE | 2019-07-19 12:35 | NUR ---
PT WITH MULTIPLE BUG BITS NOTED TO ARMS AND BACK. PT TO [facility] ROOM TO SHOWER AND WILL BE GIVEN CLEAN CLOTHES. ALL BELONGINGS DOUBLE BAGGED. PT WILL GO TO [facility] ONCE [facility] IS COMPLETED FOR EVALUATION OF HIS LEFT ANKLE PAIN
[2019-07-19] MEDS ORDERED: CEFAZOLIN 1,000 MG IM ONE (13:30)
[2019-07-19] MEDS ORDERED: SULFAMETH./TRIMETHOPRIM DS 800MG/160MG TABLET PO ONE (13:30)
[2019-07-19] MEDS ORDERED: SULFAMETH./TRIMETHOPRIM DS 800MG/160MG TABLET ONE (13:45)
[2019-07-19] MEDS ORDERED: CEFAZOLIN 1,000 MG ONE (13:45)
[2019-07-19] MEDS ORDERED: LIDOCAINE-MPF 1%, 2ML ONE (13:45)
--- NOTE | 2019-07-19 13:50 | NUR ---
PT MEDICATED PER MAR, GIVEN WARM BLANKETS, NAD NOTED, AWAITING SW
--- NOTE | 2019-07-19 15:18 | NUR ---
SW WORKING ON GETTING PT PRESCRIPTIONS PT WITH NO FUNDS. DISCHARGE DELAYED
== END 2019-07-19 16:01 | disposition home or self-care (01) ==
LOC: ED 15:55
DX: S80.812A Abrasion, left lower leg, initial encounter (principal); L03.116 Cellulitis of left lower limb; I10 Essential (primary) hypertension; X58.XXXA Exposure to other specified factors, initial encounter; Y93.89 Activity, other specified; Y92.89 Other specified places as the place of occurrence of the external cause; Y99.8 Other external cause status
CPT/HCPCS: 96372; 99283; J0690

== ENCOUNTER 2019-08-01 01:05 | Emergency (ER) | payer MEDICAID ==
[~2019-08-01] VITALS: Ht 177.8 cm; Wt 73.0 kg
[2019-08-01 01:07] VITALS: BP 144/88
--- NOTE | 2019-08-01 01:32 | NUR ---
BIB [facility] WITH C/O LEFT ANKLE PAIN, PER EMT PT WITH ANKLE F/X MONTHS AGO, MORE PAINFUL AND SKIN BURNING LAST COUPLE DAYS, PT AMBULATORY WITH CRUTCHES, A&OX4, GCS 15, HR-86, 96% R/A, B/P-144/88. PT ALSO + BED BUGS AND SCABS ON SCALP, PT TAKEN STRAIGHT TO [facility] ROOM. PT NOW RESTING ON GURNEY,PROVIDED PT WITH WARM BLANKETS, MONITORS IN PLACE, CALL LIGHT WITHIN REACH
--- NOTE | 2019-08-01 03:18 | NUR ---
FOUND PT STANDING UP AT SINK IN ROOM URINATING, PT DENIES URINATING IN SINK. PROVIDED PT WITH CLEAN CLOTHING FOR D/C. PT STATED "CAN'T I WAIT UNTIL MORNING", DISCUSSED PT'S D/C WITH HIM, PT VERBALIZED UNDERSTANDING AND ROLLED OVER ON FREDA WITH HIS BACK TOWARDS THIS RN, INFORMED PT TO GET DRESSED THAT I WOULD BE BACK IN FEW MINS TO ASSIST HIM WITH D/C
--- NOTE | 2019-08-01 03:37 | NUR ---
PT REFUSING TO GET UP AND GET DRESSED FOR D/C, SECURITY CALLED FOR ASSISTANCE ESCORTING PT OUT OF HOSPITAL.
== END 2019-08-01 03:49 | disposition home or self-care (01) ==
LOC: ED 03:31
DX: M25.572 Pain in left ankle and joints of left foot (principal); I10 Essential (primary) hypertension; Z72.9 Problem related to lifestyle, unspecified; Z87.891 Personal history of nicotine dependence; Z98.890 Other specified postprocedural states
CPT/HCPCS: 99283

== ENCOUNTER 2019-08-09 12:29 | Emergency (ER) | payer MEDICAID ==
[~2019-08-09] VITALS: Ht 175.3 cm; Wt 75.0 kg
[2019-08-09 12:35] VITALS: BP 159/73
--- NOTE | 2019-08-09 13:45 | NUR ---
NEEDS TO BE ON STRETCHER FOR XRAYS
--- NOTE | 2019-08-09 14:06 | NUR ---
PT WHEELED TO ROOM AT THIS TIME.
--- NOTE | 2019-08-09 14:18 | NUR ---
PT C/O LEFT FOOT PAIN FOR THE PAST FEW MONTHS, BUT WORSE LAST FEW DAYS. AWAITING XRAY. CALL LIGHT IN REACH.
--- NOTE | 2019-08-09 15:08 | NUR ---
ALL RESULTS ARE BACK AT THIS TIME. CHART UP FOR RECHECK.
== END 2019-08-09 15:28 | disposition home or self-care (01) ==
LOC: ED 13:08
DX: L03.116 Cellulitis of left lower limb (principal); L03.115 Cellulitis of right lower limb; I10 Essential (primary) hypertension
CPT/HCPCS: 99283

== ENCOUNTER 2019-08-14 10:11 | Emergency (ER) | payer MEDICAID ==
[~2019-08-14] VITALS: Ht 177.8 cm; Wt 75.0 kg
--- NOTE | 2019-08-14 10:41 | NUR ---
pt biba for left ankle pain that pt reports is from an old injury but unknown when and itchiness with scab to back. pt is a poor historian and unable to recall dates of injuries. pt connected to monitors. vss. Dr. Wilson to bs for assessment. awaiting orders. no needs expressed. call light within reach.
[2019-08-14 11:41] VITALS: BP 117/62
--- NOTE | 2019-08-14 11:42 | NUR ---
pt resting in room. vss. no needs expressed. call light within reach. awaiting resutls.
== END 2019-08-14 12:36 | disposition home or self-care (01) ==
LOC: ED 12:30
DX: S93.492A Sprain of other ligament of left ankle, initial encounter (principal); B86 Scabies; I10 Essential (primary) hypertension; F17.210 Nicotine dependence, cigarettes, uncomplicated; Y30.XXXA Falling, jumping or pushed from a high place, undetermined intent, initial encounter; Y93.89 Activity, other specified; Y92.89 Other specified places as the place of occurrence of the external cause; Y99.8 Other external cause status
CPT/HCPCS: 99283

== ENCOUNTER 2019-08-20 13:09 | Emergency (ER) | payer MEDICAID ==
[~2019-08-20] VITALS: Ht 177.8 cm; Wt 77.3 kg
[2019-08-20 13:24] VITALS: BP 159/51
--- NOTE | 2019-08-20 14:04 | NUR ---
PT WALKED BACK FROM LOBBY TO ROOM AT THIS TIME. STEADY UPON AMBULATION. NAD NOTED.
[2019-08-20] MEDS ORDERED: IBUPROFEN 200 MG TABLET ONE (14:26)
[2019-08-20] MEDS ORDERED: IBUPROFEN 200 MG TABLET PO ONE (14:30)
== END 2019-08-20 15:05 | disposition home or self-care (01) ==
LOC: ED 14:50
DX: S93.492A Sprain of other ligament of left ankle, initial encounter (principal); B86 Scabies; I10 Essential (primary) hypertension; X58.XXXA Exposure to other specified factors, initial encounter; Y93.89 Activity, other specified; Y92.89 Other specified places as the place of occurrence of the external cause; Y99.8 Other external cause status
CPT/HCPCS: 99283

== ENCOUNTER 2019-08-29 00:43 | Emergency (ER) | payer MEDICAID ==
[~2019-08-29] VITALS: Ht 177.8 cm; Wt 79.2 kg
[2019-08-29 00:46] VITALS: BP 154/76
[2019-08-29] MEDS ORDERED: IBUPROFEN 600 MG TABLET ONE (01:12)
--- NOTE | 2019-08-29 01:18 | NUR ---
GINNER ; Patient/Caregiver given discharge instructions and they have confirmed that they understand the instructions. Patient ambulatory with steady gait.
[2019-08-29] MEDS ORDERED: IBUPROFEN 600 MG TABLET PO ONE (01:30)
== END 2019-08-29 01:19 | disposition home or self-care (01) ==
LOC: ED 01:05
DX: G89.29 Other chronic pain (principal); M25.572 Pain in left ankle and joints of left foot; I10 Essential (primary) hypertension; F17.210 Nicotine dependence, cigarettes, uncomplicated; Z72.89 Other problems related to lifestyle
CPT/HCPCS: 99282; 99283

== ENCOUNTER 2019-09-04 01:58 | Emergency (ER) | payer MEDICAID ==
[2019-09-04 01:59] VITALS: BP 133/53
--- NOTE | 2019-09-04 02:22 | NUR ---
PT C/O LESIONS ACROSS TORSO AND ARMS FOR LAST FEW MONTHS. PT REPORTS ITCHYNESS. PT ALSO REPORTS LEFT ANKLE PAIN THAT HAS IMPROVED OVER LAST FEW WEEKS. PT CONNECTED TO MONITORING, CALL LIGHT WITHIN REACH, ALL SAFETY MEASURES IN PLACE.
== END 2019-09-04 03:04 | disposition home or self-care (01) ==
LOC: ED 02:47
DX: B86 Scabies (principal); M25.572 Pain in left ankle and joints of left foot; R21 Rash and other nonspecific skin eruption; Z87.891 Personal history of nicotine dependence
CPT/HCPCS: 99283

== ENCOUNTER 2019-09-11 01:12 | Emergency (ER) | payer MEDICAID ==
[~2019-09-11] VITALS: Ht 177.8 cm; Wt 73.0 kg
[2019-09-11 01:28] VITALS: BP 139/65
--- NOTE | 2019-09-11 01:58 | NUR ---
DC EDUCATION PROVIDED, PT DEMONSTRATES UNDERSTANDING. PT AMBULATED STEADILY TO DC WITH RN
== END 2019-09-11 02:00 | disposition home or self-care (01) ==
LOC: ED 01:49
DX: B85.1 Pediculosis due to Pediculus humanus corporis (principal); B85.0 Pediculosis due to Pediculus humanus capitis; I10 Essential (primary) hypertension; F17.210 Nicotine dependence, cigarettes, uncomplicated
CPT/HCPCS: 99283

== ENCOUNTER 2019-09-24 03:36 | Emergency (ER) | payer SELFPAY ==
[~2019-09-24] VITALS: Ht 177.8 cm; Wt 75.0 kg
[2019-09-24] MEDS ORDERED: hydrOXyzine 50MG TABLET PO ONE (04:00)
--- NOTE | 2019-09-24 04:06 | NUR ---
pt medicated per mar
--- NOTE | 2019-09-24 04:12 | NUR ---
medical office technician at pt side, awaiting xray result
[2019-09-24 05:28] VITALS: BP 119/75
== END 2019-09-24 05:37 | disposition home or self-care (01) ==
LOC: ED 04:24
DX: M19.072 Primary osteoarthritis, left ankle and foot (principal); B86 Scabies; I10 Essential (primary) hypertension
CPT/HCPCS: 73610; 73630; 99283; Q0177

== ENCOUNTER 2019-10-23 19:32 | Emergency (ER) | payer OTHER ==
[2019-10-23 20:05] VITALS: BP 137/68
--- NOTE | 2019-10-23 20:08 | NUR ---
PT DECONNED AND SHOWERED BEFORE BEING PUT IN A ROOM. ALL CLOTHING BAGGED DUE TO A HX OF BED BUGS
--- NOTE | 2019-10-23 21:22 | NUR ---
PT PROVIDED WITH NEW CLOTHING. EDUCATED ON THE NEED TO NOT OPEN HIS BAG OF CLOTHING UNTIL HE IS OUT OF THE HOSPITAL. PT VERBALIZES UNDERSTANDING. AWAITING COMPRESSION STOCKINGS AT THIS TIME FOR DC. PT RESTING ON THE GURNEY. NO DISTRESS NOTED. PT DENIES ANY NEEDS AT THIS TIME. WILL CONTINUE TO MONTIOR.
--- NOTE | 2019-10-23 23:01 | NUR ---
PT PROVIDED WITH DISCHARGE PAPERWORK. PT ENCOURAGED TO GET UP AND GET DRESSED X3. PT STILL SLEEPING. PT WARNED IF HE DOES NOT GET UP AND START GETTING DRESSED, SECURITY WILL BE CALLED. PT VERBALIZES UNDERSTANDING.PT ALSO PROVIDED WITH A TAXI VOUCHER TO THE USP. PT STATES "CAN I JUST SLEEP HERE A LITTLE LONGER". PT ADVISED HE CANNOT SLEEP HERE AND WILL NEED TO GO TO THE USP
--- NOTE | 2019-10-23 23:53 | NUR ---
Patient/Caregiver given discharge instructions and they have confirmed that they understand the instructions. Patient ambulatory with steady gait.
== END 2019-10-23 23:59 | disposition home or self-care (01) ==
LOC: ED 19:35
DX: I87.2 Venous insufficiency (chronic) (peripheral) (principal); R60.0 Localized edema; I10 Essential (primary) hypertension; Z72.9 Problem related to lifestyle, unspecified; Z87.891 Personal history of nicotine dependence
CPT/HCPCS: 99283

== ENCOUNTER 2019-12-18 11:32 | Emergency (ER) | payer MEDICARE ==
[~2019-12-18] VITALS: Ht 175.3 cm; Wt 50.0 kg
[2019-12-18 12:29] VITALS: BP 113/68
--- NOTE | 2019-12-18 12:42 | NUR ---
PT TO ROOM 9 PER [facility] COVERED IN FECES. PT STRIPPED AND CLEANED. SKIN BARRIER TO BACKSIDE, CLEAN CLOTHES, AND CAB VOUCHER TO [facility].
== END 2019-12-18 12:46 | disposition home or self-care (01) ==
LOC: ED 11:59
DX: G89.29 Other chronic pain (principal); M79.672 Pain in left foot; M79.671 Pain in right foot; I10 Essential (primary) hypertension; E87.6 Hypokalemia; E87.1 Hypo-osmolality and hyponatremia; Z87.891 Personal history of nicotine dependence
CPT/HCPCS: 99283

== ENCOUNTER 2020-01-01 21:26 | Emergency (ER) | payer MEDICARE ==
[~2020-01-01] VITALS: Ht 177.8 cm; Wt 65.0 kg
--- NOTE | 2020-01-01 21:51 | NUR ---
PT BIB [facility] FOR LEFT FOOT PAIN. PT HAS HX OF SAME AND IT HAS BEEN IMPROVING WITH NOT AMBULATING ON IT. PT DENIES MED HX. PT BROUGHT IN FROM [facility]. PTS WHEELCHAIR LEFT THERE. PER [facility] BECKER AT [facility] WHEN READY TO DISCHARGE. AT BEDSIDE
[2020-01-01] MEDS ORDERED: SULFAMETH./TRIMETHOPRIM DS 800MG/160MG TABLET PO ONE (22:00)
[2020-01-01] MEDS ORDERED: CEPHALEXIN 500 MG CAPSULE PO ONE (22:00)
[2020-01-01] MEDS ORDERED: CEPHALEXIN 500 MG CAPSULE ONE (22:02)
[2020-01-01] MEDS ORDERED: SULFAMETH./TRIMETHOPRIM DS 800MG/160MG TABLET ONE (22:02)
--- NOTE | 2020-01-01 22:07 | NUR ---
PT MEDICATED. WAITING FOR TECH TO BANDAGE. PT GIVEN URINAL AT THIS TIME.
[2020-01-01 22:45] VITALS: BP 127/85
[2020-01-01] MEDS ORDERED: NEOSPORIN OINT. PKT 1 PACKET ONE (23:11)
--- NOTE | 2020-01-01 23:30 | NUR ---
PTS FOOT BANDAGED. PT GIVEN CLEAN PANTS AND SOCKS TO CHANGE IN TO. WILL SEND PT HOME BY TAXI
--- NOTE | 2020-01-02 00:05 | NUR ---
PT DISCHARGED IN WHEELCHAIR AND GIVEN A CAB VOUCHER. CAB CALLED AND INFORMED TO BRING BACK WHEELCHAIR.
== END 2020-01-02 00:06 | disposition home or self-care (01) ==
LOC: ED 21:43
DX: L03.116 Cellulitis of left lower limb (principal); M25.572 Pain in left ankle and joints of left foot; I10 Essential (primary) hypertension; Z87.891 Personal history of nicotine dependence
CPT/HCPCS: 99283

== ENCOUNTER 2020-02-27 20:01 | Emergency (ER) | payer MEDICARE ==
[~2020-02-27] VITALS: Ht 177.8 cm; Wt 70.0 kg
--- NOTE | 2020-02-27 20:27 | NUR ---
PT WHEELED BACK TO ROOM VIA WHEEL CHAIR, PLACED ON SPO2 MONITOR AND BP CUFF. PT IS NAD, VSS, P/W/D. CAME IN DUE TO LEFT LOWER EXTREMITY PAIN AND SWELLING FOR OVER A WEEK. PT LOWER EXTREMITY SKIN IS DISCOLORED, SLIGHT DARKER. CALL LIGHT WITHIN REACH. WCTM. VICKY CASTILLO AT BS. RAD AT BS.
[2020-02-27 21:19] LABS: MEAN CORPUSCULAR HEMOGLOBIN 22.2 pg (27.5-34.5); MEAN CORPUSCULAR HGB CONC 31.5 g/dL (33.2-36.2); MEAN CORPUSCULAR VOLUME 70.4 fL (81-97); MEAN PLATELET VOLUME 6.7 fL (7.4-10.4); PLATELET COUNT 377 x10^3/uL (130-400); RED BLOOD COUNT 4.49 x10^6/uL (4.38-5.82); RED CELL DISTRIBUTION WIDTH 17.9 % (9.4-14.8)
[2020-02-27 21:20] LABS: HCT (SEDRATE) 31.9 % (39.2-51.8)
--- NOTE | 2020-02-27 21:31 | NUR ---
pt resting in gurney, no change in condition, given warm blanket for comfort, WCTM. waiting on rad read.
[2020-02-27 21:32] LABS: ANION GAP 4 mmol/L (5-15); CALCIUM 8.5 mg/dL (8.5-10.1); CHLORIDE 108 mmol/L (98-107); CREATININE 0.79 mg/dL (0.7-1.3)
[2020-02-27 21:53] VITALS: BP 137/88
--- NOTE | 2020-02-27 21:54 | NUR ---
Patient given discharge instructions and they have confirmed that they understand the instructions. Patient taken to DC desk via wheelchair, NAD. denies additional questions at this time. Stated he will follow up at [facility].
[2020-02-27 21:57] LABS: BASOPHILS # (AUTO) 0.05 x10^3/uL (0-0.1); BASOPHILS % (AUTO) 1 % (0-1); EOSINOPHILS # (AUTO) 1.93 x10^3/uL (0-0.4); EOSINOPHILS % (AUTO) 23 % (1-7); LYMPHOCYTES # (AUTO) 1.32 x10^3/uL (1-3.4); LYMPHOCYTES % (AUTO) 16 % (22-44); MD SCAN; MONOCYTES # (AUTO) 0.74 x10^3/uL (0.2-0.8); MONOCYTES % (AUTO) 9 % (2-9); NEUTROPHILS # (AUTO) 4.36 x10^3/uL (1.8-6.8); NEUTROPHILS % (AUTO) 52 % (42-75)
--- NOTE | 2020-02-27 21:58 | NUR ---
pt left with all belongings. Nothing noted in room post DC.
== END 2020-02-27 21:55 | disposition home or self-care (01) ==
LOC: ED 20:49
DX: G89.29 Other chronic pain (principal); M86.672 Other chronic osteomyelitis, left ankle and foot; M79.672 Pain in left foot; Z87.891 Personal history of nicotine dependence
CPT/HCPCS: 36415; 80048; 85025; 85651; 99284

== ENCOUNTER 2020-03-09 02:01 | Emergency (ER) | payer MEDICARE ==
[~2020-03-09] VITALS: Ht 177.8 cm; Wt 69.0 kg
[2020-03-09 02:07] VITALS: BP 127/86
== END 2020-03-09 03:13 | disposition home or self-care (01) ==
LOC: ED 02:44
DX: B85.1 Pediculosis due to Pediculus humanus corporis (principal); Z72.9 Problem related to lifestyle, unspecified
CPT/HCPCS: 99283

== ENCOUNTER 2020-05-07 22:02 | Emergency (ER) | payer MEDICARE ==
[~2020-05-07] VITALS: Ht 177.8 cm; Wt 75.0 kg
[2020-05-07] MEDS ORDERED: ACETAMINOPHEN 500 MG TABLET ONE (22:21)
[2020-05-07] MEDS ORDERED: ACETAMINOPHEN 500 MG TABLET PO ONE (22:30)
--- NOTE | 2020-05-07 23:10 | NUR ---
LATE ENTRY D/T PT CARE: PT CAME IN TONIGHT DUE TO SCABIES X6DAYS. PT HAS CRUSTING SCABS COVERING BODY. STATES HE IS ITCHY RIGHT NOW. NAD, VSS. GROSS NEURO INTACT PT PLACED ON SPO2/BP MONITORING. WCTM.
[2020-05-07 23:46] LABS: MEAN CORPUSCULAR HEMOGLOBIN 20.8 pg (27.5-34.5); MEAN CORPUSCULAR HGB CONC 31.6 g/dL (33.2-36.2); MEAN CORPUSCULAR VOLUME 65.8 fL (81-97); MEAN PLATELET VOLUME 6.9 fL (7.4-10.4); PLATELET COUNT 447 x10^3/uL (130-400); RED BLOOD COUNT 4.47 x10^6/uL (4.38-5.82); RED CELL DISTRIBUTION WIDTH 17.2 % (9.4-14.8)
[2020-05-07 23:58] LABS: ANION GAP 6 mmol/L (5-15); CALCIUM 8.8 mg/dL (8.5-10.1); CHLORIDE 110 mmol/L (98-107); CREATININE 1.36 mg/dL (0.7-1.3)
[2020-05-08 00:23] LABS: BASOPHILS # (AUTO) 0.04 x10^3/uL (0-0.1); BASOPHILS % (AUTO) 1 % (0-1); EOSINOPHILS # (AUTO) 2.05 x10^3/uL (0-0.4); EOSINOPHILS % (AUTO) 25 % (1-7); LYMPHOCYTES % (AUTO) 15 % (22-44); MD SCAN; MONOCYTES # (AUTO) 0.82 x10^3/uL (0.2-0.8); MONOCYTES % (AUTO) 10 % (2-9); NEUTROPHILS # (AUTO) 4.05 x10^3/uL (1.8-6.8); NEUTROPHILS % (AUTO) 50 % (42-75)
--- NOTE | 2020-05-08 00:30 | NUR ---
LATE ENTRY D/T PT CARE: PT RESTING ON GURNEY, NAD, VSS, GIVEN ADDITIONAL WARM BLANKETS AND SNACKS PER REQUEST. WCTM
[2020-05-08 00:44] VITALS: BP 121/70
--- NOTE | 2020-05-08 01:56 | NUR ---
Patient given discharge instructions and they have confirmed that they understand the instructions. Patient WHEELED SMOOTHLY OUT OF ED. NAD, VSS. PT UPSET ABOUT LEAVING, GIVEN WATER PER REQUEST, TOLD HE COULD STILL GO TO THE ASSISTED. STATES "WHY THE HELL CANT I JUST GO UPSTAIRS, I KNOW YOU HAVE ROOMS UP THERE." NO BELONGINGS LEFT IN ROOM AFTER DC OTHER THAN BODY LICE.
== END 2020-05-08 01:57 | disposition home or self-care (01) ==
LOC: ED 05-08 01:17
DX: R21 Rash and other nonspecific skin eruption (principal); Z20.828 Contact with and (suspected) exposure to other viral communicable diseases; B86 Scabies; Z72.9 Problem related to lifestyle, unspecified
CPT/HCPCS: 36415; 71045; 80048; 85025; 87635; 99284

== ENCOUNTER 2020-05-15 10:08 | Emergency (ER) | payer MEDICARE ==
[~2020-05-15] VITALS: Ht 177.8 cm; Wt 70.5 kg
[2020-05-15 10:11] VITALS: BP 119/62
--- NOTE | 2020-05-15 11:28 | NUR ---
TASK RN: PT MED NOTED. ALL CLOTHES THAT HE WAS WEARING I PLACED IN A PT BELONGINGS BAG AND SEALED. INSTRUCTED PT TO EITHER GET RID OF THE CLOTHES OF FIND SOME WAY TO GET THEM WASHED. INSTRUCTED HIM THAT IF HE PUTS THOUSE CLOTHES BACK ON WITHOUT DE-LICING THEM HE WILL CONTINUE TO HAVE LICE ISSUES. PT TO [facility] SHOWER ROOM TO SHOWER, GIVEN CLEAN SET OF CLOTHES. D/C INST REVIEWED. GAVE PT NOTE TO GIVE TO [facility] ASSISTED ASKING THEM TO GIVE PT ACCESS TO A SHOWER W/I 8 HRS OF HIM USING THE DE-LICE CREAM. PT D/C IN HIS WHEELCHAIR.
== END 2020-05-15 11:32 | disposition home or self-care (01) ==
LOC: ED 10:39
DX: B85.1 Pediculosis due to Pediculus humanus corporis (principal); I10 Essential (primary) hypertension
CPT/HCPCS: 99283; Q0177

== ENCOUNTER 2020-07-01 00:06 | Emergency (ER) | payer MEDICARE ==
[~2020-07-01] VITALS: Ht 177.8 cm; Wt 70.0 kg
[2020-07-01 00:19] VITALS: BP 136/86
--- NOTE | 2020-07-01 00:59 | NUR ---
pt nil x1
--- NOTE | 2020-07-01 01:03 | NUR ---
nilx2
--- NOTE | 2020-07-01 01:04 | NUR ---
nilx3 lwbs
== END 2020-07-01 01:05 | disposition left against medical advice (07) ==
LOC: ED 00:33
DX: R21 Rash and other nonspecific skin eruption (principal)

== ENCOUNTER 2020-07-01 02:02 | Emergency (ER) | payer MEDICARE ==
[~2020-07-01] VITALS: Ht 175.3 cm; Wt 70.0 kg
[2020-07-01 02:08] VITALS: BP 130/80
[2020-07-01] MEDS ORDERED: CARBAMIDE PEROXIDE EAR DROPS 6.5%, 15ML ONE (02:59)
== END 2020-07-01 03:00 | disposition home or self-care (01) ==
LOC: ED 02:30
DX: S00.06XA Insect bite (nonvenomous) of scalp, initial encounter (principal); B86 Scabies; I10 Essential (primary) hypertension; W57.XXXA Bitten or stung by nonvenomous insect and other nonvenomous arthropods, initial encounter; Y93.89 Activity, other specified; Y92.89 Other specified places as the place of occurrence of the external cause; Y99.8 Other external cause status
CPT/HCPCS: 99283

== ENCOUNTER 2020-07-09 02:19 | Emergency (ER) | payer MEDICARE ==
[~2020-07-09] VITALS: Ht 177.8 cm; Wt 70.0 kg
[2020-07-09 02:27] VITALS: BP 130/92
--- NOTE | 2020-07-09 02:59 | NUR ---
patient and seen by ERP. discharged with instruction. verbalized understanding.
== END 2020-07-09 03:02 | disposition home or self-care (01) ==
LOC: ED 02:45
DX: S20.369A Insect bite (nonvenomous) of unspecified front wall of thorax, initial encounter (principal); B85.1 Pediculosis due to Pediculus humanus corporis; Z72.9 Problem related to lifestyle, unspecified; I10 Essential (primary) hypertension; Z87.891 Personal history of nicotine dependence; W57.XXXA Bitten or stung by nonvenomous insect and other nonvenomous arthropods, initial encounter; Y93.89 Activity, other specified; Y92.89 Other specified places as the place of occurrence of the external cause; Y99.8 Other external cause status
CPT/HCPCS: 99283

== ENCOUNTER 2020-11-12 23:24 | Emergency (ER) | payer MEDICARE ==
[~2020-11-12] VITALS: Ht 172.7 cm; Wt 69.0 kg
[~2020-11-12 23:24] MED LIST changes: -FOLI-17 PO; +FOLI1TAB32 PO; -OXYC5TAB3 PO; +OXYC5TAB98 PO
[2020-11-12 23:27] VITALS: BP 145/84
== END 2020-11-12 23:53 | disposition home or self-care (01) ==
LOC: ED 23:30
DX: B85.3 Phthiriasis (principal); B85.1 Pediculosis due to Pediculus humanus corporis; B85.0 Pediculosis due to Pediculus humanus capitis; F17.200 Nicotine dependence, unspecified, uncomplicated; F15.10 Other stimulant abuse, uncomplicated; I10 Essential (primary) hypertension
CPT/HCPCS: 99283

== ENCOUNTER 2020-11-29 21:04 | Emergency (ER) | payer MEDICARE ==
[~2020-11-29] VITALS: Ht 177.8 cm; Wt 70.0 kg
--- NOTE | 2020-11-29 22:51 | NUR ---
Pt to Er with c/o right finger pain after slamming them in the door a week ago. and left ankle and toe pain. Pt showered and decon prior to room for bed bugs. Warm blanket given. Will monitor.
[2020-11-29 23:16] VITALS: BP 121/69
--- NOTE | 2020-11-29 23:16 | NUR ---
Pt given clothes and shoes. Patient given discharge instructions and they have confirmed that they understand the instructions. Patient ambulatory with steady gait. Pt home with all belongings. Rx reviewed with patient.
== END 2020-11-29 23:42 ==
LOC: ED 23:36
DX: S60.022A Contusion of left index finger without damage to nail, initial encounter (principal); S60.032A Contusion of left middle finger without damage to nail, initial encounter; L03.012 Cellulitis of left finger; B86 Scabies; R00.0 Tachycardia, unspecified; I10 Essential (primary) hypertension; Z72.9 Problem related to lifestyle, unspecified; W23.0XXA Caught, crushed, jammed, or pinched between moving objects, initial encounter; Y93.89 Activity, other specified; Y92.89 Other specified places as the place of occurrence of the external cause; Y99.8 Other external cause status
CPT/HCPCS: 99283

== ENCOUNTER 2020-12-13 21:34 | Emergency (ER) | payer MEDICARE ==
[~2020-12-13] VITALS: Ht 177.8 cm; Wt 69.3 kg
[2020-12-13 21:37] VITALS: BP 123/78
--- NOTE | 2020-12-13 21:49 | NUR ---
ekg in triage.
[2020-12-13] MEDS ORDERED: PERMETHRIN CRM 5%, 60GM TP ONE (22:00)
[2020-12-13 22:26] LABS: MEAN CORPUSCULAR HEMOGLOBIN 17.6 pg (27.5-34.5); MEAN PLATELET VOLUME 6.8 fL (7.4-10.4); PLATELET COUNT 546 x10^3/uL (130-400); RED BLOOD COUNT 4.71 x10^6/uL (4.38-5.82); RED CELL DISTRIBUTION WIDTH 19.3 % (9.4-14.8)
[2020-12-13 22:33] LABS: ALBUMIN 3.1 g/dL (3.4-5.0); ANION GAP 6 mmol/L (5-15); CALCIUM 8.7 mg/dL (8.5-10.1); CHLORIDE 106 mmol/L (98-107); CREATININE 0.74 mg/dL (0.7-1.3)
[2020-12-13 22:36] LABS: TROPONIN I < 0.015 ng/mL (0.000-0.045)
[2020-12-13 22:58] LABS: MD YES
[2020-12-13 23:02] LABS: EOS#(MANUAL) 3.19 x10^3/uL (0.0-0.4); EOS% (MANUAL) 27 % (1-7); LYMPH#(MANUAL) 1.42 x10^3/uL (1-3.4); LYMPHS% (MANUAL) 12 % (22-44); MONOS#(MANUAL) 0.59 x10^3/uL (0.3-2.7); MONOS% (MANUAL) 5 % (2-9); SEG#(MANUAL) 6.61 x10^3/uL (1.8-6.8); SEGS% (MANUAL) 56 % (42-75)
[2020-12-13 23:03] LABS: ANISOCYTOSIS 1+
[2020-12-13 23:04] LABS: MICROCYTOSIS 2+
[2020-12-13 23:05] LABS: HYPOCHROMIA 2+; POLYCHROMASIA 1+
[2020-12-13 23:12] LABS: OVALOCYTES 2+
[2020-12-13 23:13] LABS: <PLATELET ESTIMATE> INCREASED; LARGE PLATELETS 1+; TEAR DROPS 1+
[2020-12-14] MEDS ORDERED: PERMETHRIN CRM 5%, 60GM ONE (00:05)
== END 2020-12-14 00:38 | disposition home or self-care (01) ==
LOC: ED 22:21
DX: B85.0 Pediculosis due to Pediculus humanus capitis (principal); R06.00 Dyspnea, unspecified; I10 Essential (primary) hypertension; R00.0 Tachycardia, unspecified; I49.3 Ventricular premature depolarization; I44.7 Left bundle-branch block, unspecified; R06.02 Shortness of breath; R10.9 Unspecified abdominal pain; Z87.891 Personal history of nicotine dependence
CPT/HCPCS: 36415; 71045; 80048; 82040; 84484; 85025; 93005; 99285

== ENCOUNTER 2021-03-08 00:08 | Emergency (ER) | payer MEDICARE ==
[~2021-03-08] VITALS: Ht 177.8 cm; Wt 69.0 kg
[~2021-03-08 00:08] MED LIST changes: +MULT-482 PO; -MULT-750 PO
[2021-03-08 00:16] VITALS: BP 125/93
--- NOTE | 2021-03-08 00:19 | NUR ---
PT BIB [facility] FOR RASH. [facility] VISUALIZED BED BUGS. PT TAKEN TO [facility] SHOWER. VSS.
--- NOTE | 2021-03-08 00:55 | NUR ---
PT DONE BEING [facility]ED AND IS NOW IN ROOM. PT PLACED ON PULSE OX AND BP MONITOR. PT WAITING TO BE REEVALUATED
--- NOTE | 2021-03-08 01:30 | NUR ---
PT GIVEN CLEAN CLOTHES AND BUS PASS. PT GETTING DRESSED
== END 2021-03-08 01:51 | disposition home or self-care (01) ==
LOC: ED 01:45
DX: B85.1 Pediculosis due to Pediculus humanus corporis (principal); I10 Essential (primary) hypertension; Z87.891 Personal history of nicotine dependence
CPT/HCPCS: 99283

== ENCOUNTER 2021-04-22 18:05 | Emergency (ER) | payer MEDICARE ==
[~2021-04-22] VITALS: Ht 177.8 cm; Wt 70.0 kg
[2021-04-22 18:18] VITALS: BP 133/87
[2021-04-22] MEDS ORDERED: PERMETHRIN CRM 5%, 60GM TP SCH (21:30)
[2021-04-22] MEDS ORDERED: BACITRACIN ZINC OINT 500U/GM, 0.9 GM ONE (22:11)
== END 2021-04-22 22:15 | disposition home or self-care (01) ==
LOC: ED 18:30
DX: B86 Scabies (principal); Z72.9 Problem related to lifestyle, unspecified; I10 Essential (primary) hypertension
CPT/HCPCS: 99282; 99283